=== PATIENT | female | born 1975 | race Caucasian/White ===

== ENCOUNTER 2017-03-27 18:14 | Emergency (ER) | payer MEDICARE, OTHER ==
--- NOTE | 2017-03-27 18:58 | EDM.PDOC ---
ED HPI GENERAL MEDICAL PROBLEM - General Stated Complaint: PAIN LEGS /FEET Time Seen by Provider: 03/27/17 18:38 Source of Information: Reports: Patient, Old Records History Limitations: Reports: No Limitations - History of Present Illness INITIAL COMMENTS - FREE TEXT/NARRATIVE: HISTORY AND PHYSICAL: []Patient just returned to this area from [place]. History of Present Illness: []Patient is visiting here until she returns to [place] on the currently she does not have her medications and is requesting refills. Her discharge summary is brought with her and reviewed Discharge diagnosis and medical history includes #1 depression #2 bipolar #3 borderline personality disorder with maladaptive coping number for anxiety #5 hypothyroid #6 morbid obesity #7 chronic degenerative spine disease multiple thoracolumnar spine surgeries #8 chronic back pain #9 lumbar epidural abscess # 10 most recent surgery T12-L1 transforaminal lumbar interbody fusion and Wallace- Serrano osteotomy 04/19/16. 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 Allergies reported to sulfa drugs with hives and GI disturbance. Tegaderm dressing causes itchiness, methadone unclear it was nafcillin or methadone. Wellbutrin caused seizure activity. Patient had been in a retirement for rehabilitation and then did stay in this facility as she had nowhere to live. Documentation states an admission to [facility] on 02/02/16 ([facility] [facility])following hospitalization for paraspinal lumbar abscess shooting neuropathic pain of the bilateral lower extremities. Abcess treated with IV ABX. PT/OT community reintegration was also completed during therapy. she is independent with ADLs. Resident no longer had medical skilled need to remain in long-term care setting. Further stated in her nursing summary was admitted to [facility] on 03/19/17 relating to drug diversion, inappropriately taking narcotics based on this report Dr. Lind tapered and discontinued her Valium. patient became upset hitting herself verbalized thoughts of suicide was again hospitalized and later discharged, during the hospitalization 03/21/17, all narcotics were discontinued Review of Systems: As per history of present illness and below otherwise all systems reviewed and negative. Past medical history: As per history of present illness and as reviewed below otherwise noncontributory. Surgical history: As per history of present illness and as reviewed below otherwise noncontributory. Social history: No reported history of drug or alcohol abuse. Family history: As per history of present illness and as reviewed below otherwise noncontributory. Physical exam: Patient is alert and speaking in full sentences. Walking without any difficulty with her walker. HEENT: Atraumatic, normocehpalic, pupils reactive, negative for conjunctival pallor or scleral icterus, mucous membranes moist, throat clear, neck supple, nontender, trachea midline. Lungs: Clear to auscultation, breath sounds equal bilaterally, chest non tender. Heart: S1S2, regular, negative for clicks, rubs, or JVD. Abdomen: Soft, nondistended, nontender. Negative for masses or hepatossplenmegaly. Negative for costovertebral tenderness. Pelvis: Stable nontender. Genitourinary: Deferred. Rectal: Deferred Extremities: Atraumatic, negative for cords or calf pain. Neurovascular unremarkable. Neuro: Awake, alert, oriented. Cranial nerves II through XII unremarkable. Cerebellum unremarkable. Motor and sensory unremarkable throughout. Exam nonfocal. Have discussed at length the use of chronic medications and that emergency room we are not able to renew her medicines for her. She's been referred to [facility] practice clinic or walking clinic for this concern Diagnostics: [] Therapeutics: [] Impression: [Medication renewal] Plan: []Plan is to go to walk-in clinic at [facility] fitness Definitive disposition and diagnosis as appropriate pending reevaluation and review of above. Onset: Gradual Duration: Chronic - Related Data Allergies Allergy/AdvReac Type Severity Reaction Status Date / Time adhesive tape Allergy Rash Verified 03/27/17 18:54 bupropion HCl Allergy Hives Verified 03/27/17 18:54 [From Wellbutrin] metoclopramide HCl Allergy Hives Verified 03/27/17 18:54 [From Reglan] Sulfa (Sulfonamide Allergy Hives Verified 03/27/17 18:54 Antibiotics) Home Meds: Home Meds Baclofen [Lioresal] 20 mg PO TID 12/06/15 [History] Diazepam [Diazepam] 5 mg PO TID PRN 12/06/15 [History] Esomeprazole [NexIUM] 40 mg PO DAILY 12/06/15 [History] Estradiol [Estradiol] 2 mg PO DAILY 12/06/15 [History] Levothyroxine Sodium 137 mcg PO DAILY 12/06/15 [History] Lurasidone [Latuda] 20 mg PO DAILY 12/06/15 [History] Potassium Chloride 20 meq PO DAILY 12/06/15 [History] Pregabalin [Lyrica] 150 mg PO BID 12/06/15 [History] oxyCODONE HCl [Oxycodone HCl] 10 mg PO Q12HR 12/06/15 [History] Acetaminophen [Tylenol] 650 mg PO Q4H PRN 12/17/15 [History] Calcium Carb & Citrate/Vit D3 [Citracal + D ER] 2 tab PO DAILY 12/17/15 [History ] Cyanocobalamin (Vitamin B12) [Vitamin B12] 1 tab PO DAILY 12/17/15 [History] Cyanocobalamin (Vitamin B12) [Vitamin B12] 1,000 mcg IM ASDIRECTED 12/17/15 [ History] DULoxetine [Cymbalta] 1 cap PO DAILY 12/17/15 [History] Diclofenac Sodium [Voltaren] 1 tab PO QID PRN 12/17/15 [History] Fish Oil/[place]-3 Fatty Acids [Fish Oil 1,000 MG] 3 cap PO TID 12/17/15 [History] Ibuprofen 1 cap PO Q6HR PRN 12/17/15 [History] Vits #93/Iron Fum/FA [ Formula Tablet] 1 tab PO DAILY 12/17/15 [History] Pseudoephedrine [Sudogest] 1 tab PO Q6HR PRN 12/17/15 [History] Zolpidem [Ambien] 1 tab PO BEDTIME 12/17/15 [History] traZODone 1 tab PO DAILY PRN 12/17/15 [History] Past Medical History Cardiovascular History: Reports: Hypertension Gastrointestinal History: Reports: GERD Genitourinary History: Reports: UTI, Recurrent, 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) Other Genitourinary History: kidney mass, dysuria 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: , 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) Other OB/BYN History: HRT Other Musculoskeletal History: Spinal stenosis, degenerative bone disease Neurological History: Reports: Migraines Psychiatric History: Reports: Anxiety, Depression, 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) Other Psychiatric History: insomnia, bipolar Endocrine/Metabolic History: Reports: Diabetes, Type II, Hyperthyroidism Hematologic History: Reports: Anemia, Iron Deficiency Dermatologic History: Reports: 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) Other Dermatologic History: neel infections - Infectious Disease History Infectious Disease History: Reports: None - Past Surgical History GI Surgical History: Reports: Bariatric Procedure Musculoskeletal Surgical History: Reports: 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) Social & Family History - Family History HEENT: Reports: None Cardiac: Reports: None Respiratory: Reports: None GI: Reports: None : Reports: None OBGYN: Reports: None Musculoskeletal: Reports: None Neurological: Reports: None Psychiatric: Reports: Anxiety, Depression Endocrine/Metabolic: Reports: Diabetes, type II Hematologic: Reports: None Immunologic: Reports: None Oncologic: Reports: Bone, Pancreatic - Tobacco Use Smoking Status *Q: Former Smoker Years of Tobacco use: 20 Packs/Tins Daily: 0.5 Used Tobacco, but Quit: Yes Month Tobacco Last Used: June, Second Hand Smoke Exposure: No - Recreational Drug Use Recreational Drug Use: No ED ROS GENERAL - Review of Systems Review Of Systems: ROS reveals no pertinent complaints other than HPI. ED EXAM, GENERAL - Physical Exam Exam: See Below (see dictation) Departure - Departure Time of Disposition: 19:08 Disposition: Home, Self-Care 01 Condition: Good Clinical Impression: Chronic back pain greater than 3 months duration - Discharge Information Additional Instructions: The following information is given to patients seen in the emergency department who are being discharged to home. This information is to outline your options for follow-up care. We provide all patients seen in our emergency department with a follow-up referral. The need for follow-up, as well as the timing and circumstances, are variable depending upon the specifics of your emergency department visit. If you don't have a primary care physician on staff, we will provide you with a referral. We always advise you to contact your personal physician following an emergency department visit to inform them of the circumstance of the visit and for follow-up with them and/or the need for any referrals to a consulting specialist. The emergency department will also refer you to a specialist when appropriate. This referral assures that you have the opportunity for followup care with a specialist. All of these measure are taken in an effort to provide you with optimal care, which includes your followup. Under all circumstances we always encourage you to contact your private physician who remains a resource for coordinating your care. When calling for followup care, please make the office aware that this follow-up is from your recent emergency room visit. If for any reason you are refused follow-up, please contact the [facility] emergency department at and asked to speak to the emergency department charge nurse.
[2017-03-27 19:18] VITALS: BP 117/73
== END 2017-03-27 19:15 | disposition home or self-care (01) ==
LOC: MW.ED 18:14
DX: Z76.0 Encounter for issue of repeat prescription (principal); G89.29 Other chronic pain; M54.9 Dorsalgia, unspecified; I10 Essential (primary) hypertension; K21.9 Gastro-esophageal reflux disease without esophagitis; G43.909 Migraine, unspecified, not intractable, without status migrainosus; F41.9 Anxiety disorder, unspecified; F32.9 Major depressive disorder, single episode, unspecified; E11.9 Type 2 diabetes mellitus without complications; E05.90 Thyrotoxicosis, unspecified without thyrotoxic crisis or storm; Z86.2 Personal history of diseases of the blood and blood-forming organs and certain disorders involving the immune mechanism; Z98.84 Bariatric surgery status; Z87.440 Personal history of urinary (tract) infections; Z87.891 Personal history of nicotine dependence; Z79.899 Other long term (current) drug therapy; Z88.2 Allergy status to sulfonamides; Z88.8 Allergy status to other drugs, medicaments and biological substances
CPT/HCPCS: 99281; 99283

== ENCOUNTER 2017-05-01 14:14 | Emergency (ER) | payer MEDICAID, MEDICARE ==
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
[2017-05-01] MEDS ORDERED: HYDROmorphone 2 MG/ML Syringe IM ONE (15:38)
[2017-05-01 18:19] VITALS: BP 144/67
--- NOTE | 2017-05-02 18:05 | CR ---
EXAM DATE: 05/01/17 PATIENT'S AGE: 41 Patient: MARI VALDEZ Facility: [place], [place] Site . Site : 1975 Study: XRay Chest [id number]/3/2017 4:28:19 PM Ordering Physician: Michaela Knight Final Report: INDICATION: pain TECHNIQUE: Chest 2 views COMPARISON: None FINDINGS: Cardiovascular and mediastinum: Heart size and vasculature are normal in caliber and appearance. Mediastinum is within normal limits. Lungs and pleural spaces: No focal consolidation. Hyperinflation. No sign of pleural effusion. No pneumothorax. Bones and soft tissues: Partially imaged bilateral Parmar rods in place. Advanced junctional disease noted. . IMPRESSION: No acute cardiopulmonary disease. Dictated by Albert Sheets MD @ 05/01/2017 5:07:40 PM Dictated by: Albert Sheets MD @ 05/01/2017 17:07:48 (Electronic Signature) Report Signed by Proxy. [facility]
--- NOTE | 2017-05-02 18:07 | CT ---
EXAM DATE: 05/01/17 PATIENT'S AGE: 41 Patient: MARI VALDEZ Facility: [place], [place] Site . Site : 1975 Study: CT Spine Lumbar WO CONT [id number]/3/2017 4:33:47 PM Ordering Physician: Michaela Knight Final Report: INDICATION: Upper back pain that radiates down to her lower back and right leg, patient states no known injury. Comparison: Chest radiograph from May 01, 2017 CT lumbar spine from December 17, 2015. Technique: Multiaxial CT images of the thoracolumbar spine were obtained without intravenous contrast. Coronal and sagittal reformatted images were submitted. FINDINGS: There is mild bilateral atelectasis. There is kyphosis at T10-T11 with fracture/ deformity of the T10 inferior endplate. There is vacuum disc phenomenon and Schmorl`s node at this level. Mild subluxation of the facet joints at T10-11 in the craniocaudal dimension. Bilateral subacute to chronic T9 pedicle fractures. There is no evidence of severe neural foramen narrowing. There is mild neural foramen narrowing at T9-10 on the left. Redemonstrated is posterior fusion hardware and transpedicle screws from T11- S2. Posterior decompression is noted from about L2-S1. Intervertebral disc cages are noted at L1-2, L2-L3 and L3-L4, with two at the L4-5 disc level. The right-sided cage at L4-5 is projects centrally positioned and angulated anterior superiorly. Healing rib fractures noted on the left at T8, T11, T12 and on the right at T10. There is an acute left T9 no fracture. Evaluation of the spinal canal is limited due to metallic hardware artifact. IMPRESSION: 1. Likely subacute T10 inferior endplate fracture. Subacute-chronic bilateral T9 pedicle fractures. 2. Healing rib fractures noted on the left at T8, T11, T12 and on the right at T10. There is an acute left T9 no fracture. 3. Redemonstrated is posterior fusion hardware and transpedicle screws from T11- S2. Posterior decompression is noted from about L2-S1. Intervertebral disc cages are noted at L1-2, L2-L3 and L3-L4, with two at the L4-5 disc level. The right-sided cage at L4-5 is projects centrally positioned and angulated anterior superiorly. Please note that all CT scans at this facility use dose modulation, iterative reconstruction, and/or weight-based dosing when appropriate to reduce radiation dose to as low as reasonably achievable. Dictated by Ruben Rowe MD @ May 02 2017 2:07PM (Electronic Signature) Report Signed by Proxy. MTDD
--- NOTE | 2017-05-02 18:09 | CT ---
EXAM DATE: 05/01/17 PATIENT'S AGE: 41 Patient: MARI VALDEZ Facility: [place], [place] Site . Site : 1975 Study: CT Spine Thoracic wo cont [id number]/3/2017 4:43:16 PM Ordering Physician: Michaela Knight Final Report: INDICATION: Upper back pain that radiates down to her lower back and right leg, patient states no known injury. Comparison: Chest radiograph from May 01, 2017 CT lumbar spine from December 17, 2015. Technique: Multiaxial CT images of the thoracolumbar spine were obtained without intravenous contrast. Coronal and sagittal reformatted images were submitted. FINDINGS: There is mild bilateral atelectasis. There is kyphosis at T10-T11 with fracture/deformity of the T10 inferior endplate. There is vacuum disc phenomenon and Schmorl`s node at this level. Mild subluxation of the facet joints at T10-11 in the craniocaudal dimension. There is no evidence of significant severe neural foramen narrowing. There is mild neural foramen narrowing at T9-10 on the left. Bilateral subacute to chronic T9 pedicle fractures. Redemonstrated is posterior fusion hardware and transpedicle screws from T11- S2. Posterior decompression is noted from about L2-S1. Intervertebral disc cages are noted at L1-2, L2-L3 and L3-L4, with two at the L4-5 disc level. The right-sided cage at L4-5 is projects centrally positioned and angulated anterior superiorly. Healing rib fractures noted on the left at T8, T11, T12 and on the right at T10. There is an acute left T9 no fracture. Evaluation of the spinal canal is limited due to metallic hardware artifact. IMPRESSION: 1. Likely subacute T10 inferior endplate fracture. Subacute-chronic bilateral T9 pedicle fractures. 2. Healing rib fractures noted on the left at T8, T11, T12 and on the right at T10. There is an acute left T9 no fracture. 3. Redemonstrated is posterior fusion hardware and transpedicle screws from T11- S2. Posterior decompression is noted from about L2-S1. Intervertebral disc cages are noted at L1-2, L2-L3 and L3-L4, with two at the L4-5 disc level. The right-sided cage at L4-5 is projects centrally positioned and angulated anterior superiorly. Please note that all CT scans at this facility use dose modulation, iterative reconstruction, and/or weight-based dosing when appropriate to reduce radiation dose to as low as reasonably achievable. Dictated by Ruben Rowe MD @ May 02 2017 8:17AM (Electronic Signature) Report Signed by Proxy. MTDD
== END 2017-05-01 18:16 | disposition home or self-care (01) ==
LOC: MW.ED 14:14
DX: S22.43XA Multiple fractures of ribs, bilateral, initial encounter for closed fracture (principal); M85.80 Other specified disorders of bone density and structure, unspecified site; I10 Essential (primary) hypertension; K21.9 Gastro-esophageal reflux disease without esophagitis; F41.9 Anxiety disorder, unspecified; F32.9 Major depressive disorder, single episode, unspecified; E11.9 Type 2 diabetes mellitus without complications; E03.9 Hypothyroidism, unspecified; Z87.891 Personal history of nicotine dependence; Z98.84 Bariatric surgery status; Z87.440 Personal history of urinary (tract) infections; Z79.899 Other long term (current) drug therapy; Z88.2 Allergy status to sulfonamides; Z88.8 Allergy status to other drugs, medicaments and biological substances; Z91.048 Other nonmedicinal substance allergy status; X58.XXXA Exposure to other specified factors, initial encounter
CPT/HCPCS: 71020; 72128; 72131; 80305; 81001; 96372; 99284; J1170; 99283

== ENCOUNTER 2017-05-24 16:34 | Emergency (ER) | payer MEDICARE, MEDICAID ==
--- NOTE | 2017-05-24 17:05 | EDM.PDOC ---
ED HPI GENERAL MEDICAL PROBLEM - General Chief Complaint: Lower Extremity Injury/Pain Stated Complaint: PAIN/SWOLLEN LT LEG Time Seen by Provider: 05/24/17 16:51 - History of Present Illness INITIAL COMMENTS - FREE TEXT/NARRATIVE: HISTORY AND PHYSICAL: History of present illness: Patient 41-year-old white female who presents with a concern of left knee pain patient has been seen in the ER multiple times in the past for multiple different pain syndromes including back leg patient states she has history of osteoporosis denies any trauma. Review of systems: As per history of present illness and below otherwise all systems reviewed and negative. Past medical history: As per history of present illness and as reviewed below otherwise noncontributory. Surgical history: As per history of present illness and as reviewed below otherwise noncontributory. Social history: No reported history of drug or alcohol abuse. Family history: As per history of present illness and as reviewed below otherwise noncontributory. Physical exam: HEENT: Atraumatic, normocephalic, pupils reactive, negative for conjunctival pallor or scleral icterus, mucous membranes moist, throat clear, neck supple, nontender, trachea midline. Lungs: Clear to auscultation, breath sounds equal bilaterally, chest nontender. Heart: S1S2, regular, negative for clicks, rubs, or JVD. Abdomen: Soft, nondistended, nontender. Negative for masses or hepatosplenomegaly. Negative for costovertebral tenderness. Pelvis: Stable nontender. Genitourinary: Deferred. Rectal: Deferred. Extremities: Patient has no localized tenderness of her left knee there is no swelling erythema no cords pain no crepitation joint is grossly stable Neuro: Awake, alert, oriented. Cranial nerves II through XII unremarkable. Cerebellum unremarkable. Motor and sensory unremarkable throughout. Exam nonfocal. Diagnostics: X-ray left knee venous Doppler left lower Therapeutics: None Impression: #1 left knee pain #2 history of osteoporosis #3 history of chronic back pain #4 history of leg pain Definitive disposition and diagnosis as appropriate pending reevaluation and review of above. - Related Data Allergies Allergy/AdvReac Type Severity Reaction Status Date / Time adhesive tape Allergy Rash Verified 05/01/17 14:22 bupropion HCl Allergy Hives Verified 05/01/17 14:22 [From Wellbutrin] metoclopramide HCl Allergy Hives Verified 05/01/17 14:22 [From Reglan] Penicillins Allergy Hives Verified 05/24/17 17:07 Sulfa (Sulfonamide Allergy Hives Verified 05/01/17 14:22 Antibiotics) Home Meds: Home Meds Baclofen [Lioresal] 20 mg PO TID 12/06/15 [History] Esomeprazole [NexIUM] 40 mg PO BID 12/06/15 [History] Calcium Carb & Citrate/Vit D3 [Citracal + D ER] 2 tab PO DAILY 12/17/15 [History ] ARIPiprazole [Aripiprazole] 15 mg PO DAILY 05/01/17 [History] Celecoxib 200 mg PO BID 05/01/17 [History] DULoxetine [Cymbalta] 120 mg PO DAILY 05/01/17 [History] Estradiol [Estradiol Transdermal Patch] 0.075 mg TD MOFR 05/01/17 [History] Furosemide 40 mg PO BID 05/01/17 [History] Hydrocortisone [Proctosol-HC] 1 applicful RC TID PRN 05/01/17 [History] L Acidophil/B Lactis/B Longum [Florajen3] 460 mg PO Q12H 05/01/17 [History] Levothyroxine 125 mcg PO ACBREAKFAST 05/01/17 [History] Lurasidone HCl [Latuda] 40 mg PO DAILY 05/01/17 [History] Magnesium Oxide 400 mg PO DAILY 05/01/17 [History] Methocarbamol [Robaxin] 500 mg PO Q6H PRN 05/01/17 [History] Minocycline [Minocin] 100 mg PO BID 05/01/17 [History] Mometasone Furoate [Nasonex [place]] 1 spray [place] DAILY 05/01/17 [History] Multivit-Min/FA/Lycopene/Lut [Certavite Sr with Lutein Tab] 1 each PO DAILY 12/13 [History] Ondansetron [Zofran] 4 mg PO Q8H PRN 05/01/17 [History] Potassium Chloride 10 meq PO DAILY 05/01/17 [History] Spironolact/Hydrochlorothiazid [Spironolactone-HCTZ 25-25] 1 tab PO DAILY [History] Topiramate 100 mg PO BEDTIME 05/01/17 [History] diphenhydrAMINE [Benadryl] 25 mg PO Q4H PRN 05/01/17 [History] Past Medical History Cardiovascular History: Reports: Hypertension Gastrointestinal History: Reports: GERD Genitourinary History: Reports: UTI, Recurrent, 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) Other Genitourinary History: kidney mass, dysuria [employer] History: Reports: , 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) Other OB/BYN History: HRT Other Musculoskeletal History: Spinal stenosis, degenerative bone disease Neurological History: Reports: Migraines Psychiatric History: Reports: Anxiety, Depression, 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) Other Psychiatric History: insomnia, bipolar Endocrine/Metabolic History: Reports: Diabetes, Type II, Hyperthyroidism Hematologic History: Reports: Anemia, Iron Deficiency Dermatologic History: Reports: 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) Other Dermatologic History: neel infections - Infectious Disease History Infectious Disease History: Reports: 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) Other Infectious Disease History: MSSA - Past Surgical History GI Surgical History: Reports: Bariatric Procedure Musculoskeletal Surgical History: Reports: 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) Social & Family History - Family History Family Medical History: Noncontributory HEENT: Reports: None Cardiac: Reports: None Respiratory: Reports: None GI: Reports: None : Reports: None OBGYN: Reports: None Musculoskeletal: Reports: None Neurological: Reports: None Psychiatric: Reports: Anxiety, Depression Endocrine/Metabolic: Reports: Diabetes, type II Hematologic: Reports: None Immunologic: Reports: None Oncologic: Reports: Bone, Pancreatic - Tobacco Use Smoking Status *Q: Former Smoker Years of Tobacco use: 20 Packs/Tins Daily: 0.5 Used Tobacco, but Quit: Yes Month Tobacco Last Used: March Second Hand Smoke Exposure: No - Caffeine Use Caffeine Use: Reports: Coffee, Energy Drinks, Soda, Tea - Recreational Drug Use Recreational Drug Use: No Review of Systems - Review of Systems Review Of Systems: ROS reveals no pertinent complaints other than HPI. ED EXAM, GENERAL - Physical Exam Exam: See Below (See dictation) Course - Vital Signs Last Recorded V/S: Last Vital Signs Temp 36.6 C 05/24/17 17:03 Pulse 98 05/24/17 17:03 Resp 20 05/24/17 17:03 BP 115/77 05/24/17 17:03 Pulse Ox 98 05/24/17 17:03 - Orders/Labs/Meds Orders: Active Orders 24 hr Category Date Time Status Knee 3V Lt [CR] Stat Exams 05/24/17 17:02 Taken Venous Doppler Lwr Ext Lt [US] Stat Exams 05/24/17 17:02 Taken Departure - Departure Time of Disposition: 18:19 Disposition: Home, Self-Care 01 Condition: Good Clinical Impression: Knee pain - Discharge Information Referrals: Jarocho Loco DO [Primary Care Provider] - Forms: ED Department Discharge Additional Instructions: The following information is given to patients seen in the emergency department who are being discharged to home. This information is to outline your options for follow-up care. We provide all patients seen in our emergency department with a follow-up referral. The need for follow-up, as well as the timing and circumstances, are variable depending upon the specifics of your emergency department visit. If you don't have a primary care physician on staff, we will provide you with a referral. We always advise you to contact your personal physician following an emergency department visit to inform them of the circumstance of the visit and for follow-up with them and/or the need for any referrals to a consulting specialist. The emergency department will also refer you to a specialist when appropriate. This referral assures that you have the opportunity for followup care with a specialist. All of these measure are taken in an effort to provide you with optimal care, which includes your followup. Under all circumstances we always encourage you to contact your private physician who remains a resource for coordinating your care. When calling for followup care, please make the office aware that this follow-up is from your recent emergency room visit. If for any reason you are refused follow-up, please contact the [facility] emergency department at and asked to speak to the emergency department charge nurse. [facility] - Orth[facility] Professional Building [address] [place] [address], [address] [place] [address] Follow-up primary medical doctor in orthopedic clinic above as discussed call to schedule routine appointment Motrin Tylenol as directed return as needed as discussed - My Orders Last 24 Hours: My Active Orders 05/24/17 17:02 Knee 3V Lt [CR] Stat Venous Doppler Lwr Ext Lt [US] Stat - Assessment/Plan Last 24 Hours: My Active Orders 05/24/17 17:02 Knee 3V Lt [CR] Stat Venous Doppler Lwr Ext Lt [US] Stat
[2017-05-24 17:06] VITALS: BP 115/77
[2017-05-24] MEDS ORDERED: Ketorolac 30 MG/ML SDV IM ONE (18:23)
--- NOTE | 2017-05-26 12:08 | CR ---
EXAM DATE: 05/24/17 PATIENT'S AGE: 41 Patient: MARI VALDEZ Facility: [place], [place] Site . Site : 1975 Study: XRay Knee [id number]/26/2017 5:38:03 PM Ordering Physician: Fela Dominguez Final Report: Indication: Pain Technique: Three views left knee Comparison: None Findings: Bones: Alignment is normal. No fractures or bone lesions. Joint spaces: Unremarkable. Soft tissues: Unremarkable. Impression: Negative. Dictated by Iva Morales MD @ May 24 2017 6:03PM (Electronic Signature) Report Signed by Proxy. MONY
--- NOTE | 2017-05-26 12:10 | US ---
EXAM DATE: 05/24/17 PATIENT'S AGE: 41 Patient: MARI VALDEZ Facility: [place], [place] Site . Site : 1975 Study: US Extremity [id number]/26/2017 6:13:03 PM Ordering Physician: Fela Dominguez Final Report: INDICATION: Pain TECHNIQUE: Ultrasound venous duplex lower left extremity. Compression venous exam was performed using watt-scale, color Doppler, and spectral Doppler imaging. COMPARISON: None FINDINGS: Sonographic imaging demonstrates the left common femoral, deep femoral, superficial femoral, popliteal, posterior tibial and greater saphenous veins to be fully compressible with normal color Doppler blood flow. IMPRESSION: Normal left lower extremity venous ultrasound, no sign of deep venous thrombosis. Dictated by Iva Morales MD @ May 24 2017 6:15PM (Electronic Signature) Report Signed by Proxy. MONY
== END 2017-05-24 18:45 | disposition home or self-care (01) ==
LOC: MW.ED 16:34
DX: M25.562 Pain in left knee (principal); I10 Essential (primary) hypertension; K21.9 Gastro-esophageal reflux disease without esophagitis; Z87.440 Personal history of urinary (tract) infections; F41.9 Anxiety disorder, unspecified; F32.9 Major depressive disorder, single episode, unspecified; E11.9 Type 2 diabetes mellitus without complications; E05.90 Thyrotoxicosis, unspecified without thyrotoxic crisis or storm; Z86.2 Personal history of diseases of the blood and blood-forming organs and certain disorders involving the immune mechanism; Z87.39 Personal history of other diseases of the musculoskeletal system and connective tissue; Z88.2 Allergy status to sulfonamides; Z88.0 Allergy status to penicillin; Z88.8 Allergy status to other drugs, medicaments and biological substances; Z79.899 Other long term (current) drug therapy; Z87.891 Personal history of nicotine dependence; Z98.84 Bariatric surgery status
CPT/HCPCS: 73562; 93971; 96372; 99284; J1885

== ENCOUNTER 2017-05-26 11:07 | Emergency (ER) | payer MEDICARE, MEDICAID ==
--- NOTE | 2017-05-26 11:33 | EDM.PDOC ---
ED HPI GENERAL MEDICAL PROBLEM - General Chief Complaint: Lower Extremity Injury/Pain Stated Complaint: LT KNEE HURTS Time Seen by Provider: 05/26/17 11:27 Source of Information: Reports: Patient History Limitations: Reports: No Limitations - History of Present Illness INITIAL COMMENTS - FREE TEXT/NARRATIVE: HISTORY AND PHYSICAL: []41-year-old female presents with left knee pain that has been worsening and presentation History of Present Illness: []Patient's pain started a week ago she started having pain to the subpatellar area. Patient was seen in the emergency room 2 days ago. Pain has worsened since. Has difficulty standing on her left leg. Patient's chart has been reviewed from previous visits. Patient does have an appointment with orthopedics on June 06. Review of Systems: As per history of present illness and below otherwise all systems reviewed and negative. Past medical history: As per history of present illness and as reviewed below otherwise noncontributory. Surgical history: As per history of present illness and as reviewed below otherwise noncontributory. Social history: No reported history of drug or alcohol abuse. Family history: As per history of present illness and as reviewed below otherwise noncontributory. Physical exam: Alert and oriented obese female who is nontoxic. Answering questions in full sentences. she does have a walker with her and is now sitting in a wheelchair. HEENT: Atraumatic, normocehpalic, pupils reactive, negative for conjunctival pallor or scleral icterus, mucous membranes moist, throat clear, neck supple, nontender, trachea midline. Lungs: Clear to auscultation, breath sounds equal bilaterally, chest non tender. Heart: S1S2, regular, negative for clicks, rubs, or JVD. Abdomen: Soft, nondistended, nontender. Negative for masses or hepatossplenmegaly. Negative for costovertebral tenderness. Pelvis: Deferred Genitourinary: Deferred. Rectal: Deferred Extremities: Atraumatic, negative for cords or calf pain. Pedal pulses are intact. anterior drawer negative. Unable to form other evaluation this patient is unable to relax enough. Neurovascular unremarkable. Neuro: Awake, alert, oriented. Cranial nerves II through XII unremarkable. Cerebellum unremarkable. Motor and sensory unremarkable throughout. Exam nonfocal. Diagnostics: [CT left knee] Therapeutics: [Toradol Ash wrap] Impression: [Left knee pain] Plan: []Discharged to home Follow up with orthopedic as already scheduled Definitive disposition and diagnosis as appropriate pending reevaluation and review of above. Left Knee Pain Score (Numeric/FACES): 8 - Related Data Allergies Allergy/AdvReac Type Severity Reaction Status Date / Time adhesive tape Allergy Rash Verified 05/01/17 14:22 bupropion HCl Allergy Hives Verified 05/01/17 14:22 [From Wellbutrin] metoclopramide HCl Allergy Hives Verified 05/01/17 14:22 [From Reglan] Penicillins Allergy Hives Verified 05/24/17 17:07 Sulfa (Sulfonamide Allergy Hives Verified 05/01/17 14:22 Antibiotics) Home Meds: Home Meds Baclofen [Lioresal] 20 mg PO TID 12/06/15 [History] Esomeprazole [NexIUM] 40 mg PO BID 12/06/15 [History] Calcium Carb & Citrate/Vit D3 [Citracal + D ER] 2 tab PO DAILY 12/17/15 [History ] ARIPiprazole [Aripiprazole] 15 mg PO DAILY 05/01/17 [History] Celecoxib 200 mg PO BID 05/01/17 [History] DULoxetine [Cymbalta] 120 mg PO DAILY 05/01/17 [History] Estradiol [Estradiol Transdermal Patch] 0.075 mg TD MOFR 05/01/17 [History] Furosemide 40 mg PO BID 05/01/17 [History] Hydrocortisone [Proctosol-HC] 1 applicful RC TID PRN 05/01/17 [History] L Acidophil/B Lactis/B Longum [Florajen3] 460 mg PO Q12H 05/01/17 [History] Levothyroxine 125 mcg PO ACBREAKFAST 05/01/17 [History] Lurasidone HCl [Latuda] 40 mg PO DAILY 05/01/17 [History] Magnesium Oxide 400 mg PO DAILY 05/01/17 [History] Methocarbamol [Robaxin] 500 mg PO Q6H PRN 05/01/17 [History] Minocycline [Minocin] 100 mg PO BID 05/01/17 [History] Mometasone Furoate [Nasonex [place]] 1 spray [place] DAILY 05/01/17 [History] Multivit-Min/FA/Lycopene/Lut [Certavite Sr with Lutein Tab] 1 each PO DAILY 12/13 [History] Ondansetron [Zofran] 4 mg PO Q8H PRN 05/01/17 [History] Potassium Chloride 10 meq PO DAILY 05/01/17 [History] Spironolact/Hydrochlorothiazid [Spironolactone-HCTZ 25-25] 1 tab PO DAILY [History] Topiramate 100 mg PO BEDTIME 05/01/17 [History] diphenhydrAMINE [Benadryl] 25 mg PO Q4H PRN 05/01/17 [History] Past Medical History Cardiovascular History: Reports: Hypertension Gastrointestinal History: Reports: GERD Genitourinary History: Reports: UTI, Recurrent, 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) Other Genitourinary History: kidney mass, dysuria [employer] History: Reports: , 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) Other OB/BYN History: HRT Other Musculoskeletal History: Spinal stenosis, degenerative bone disease Neurological History: Reports: Migraines Psychiatric History: Reports: Anxiety, Depression, 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) Other Psychiatric History: insomnia, bipolar Endocrine/Metabolic History: Reports: Diabetes, Type II, Hyperthyroidism Hematologic History: Reports: Anemia, Iron Deficiency Dermatologic History: Reports: 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) Other Dermatologic History: neel infections - Infectious Disease History Infectious Disease History: Reports: 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) Other Infectious Disease History: MSSA - Past Surgical History GI Surgical History: Reports: Bariatric Procedure Musculoskeletal Surgical History: Reports: 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) Social & Family History - Family History Family Medical History: Noncontributory HEENT: Reports: None Cardiac: Reports: None Respiratory: Reports: None GI: Reports: None : Reports: None OBGYN: Reports: None Musculoskeletal: Reports: None Neurological: Reports: None Psychiatric: Reports: Anxiety, Depression Endocrine/Metabolic: Reports: Diabetes, type II Hematologic: Reports: None Immunologic: Reports: None Oncologic: Reports: Bone, Pancreatic - Tobacco Use Smoking Status *Q: Former Smoker Years of Tobacco use: 20 Packs/Tins Daily: 0.5 Used Tobacco, but Quit: Yes Month Tobacco Last Used: March Second Hand Smoke Exposure: No - Caffeine Use Caffeine Use: Reports: Coffee, Energy Drinks, Soda, Tea - Recreational Drug Use Recreational Drug Use: No Review of Systems - Review of Systems Review Of Systems: ROS reveals no pertinent complaints other than HPI. ED EXAM, GENERAL - Physical Exam Exam: See Below (see dictation) Course - Vital Signs Last Recorded V/S: Last Vital Signs Temp 35.8 C 05/26/17 11:18 Pulse 93 05/26/17 11:18 Resp 20 05/26/17 11:18 BP 102/54 L 05/26/17 11:18 Pulse Ox 99 05/26/17 11:18 - Orders/Labs/Meds Orders: Active Orders 24 hr Category Date Time Status Splinting [RC] ASDIRECTED Care 05/26/17 11:39 Ordered Meds: Medications Discontinued Medications Generic Name Dose Route Start Last Admin Trade Name Freq PRN Reason Stop Dose Admin Ketorolac Tromethamine 60 mg 05/26/17 11:34 Toradol IM 05/26/17 11:35 ONETIME ONE Departure - Departure Time of Disposition: 11:42 Disposition: Home, Self-Care 01 Condition: Good Clinical Impression: Left anterior knee pain - Discharge Information Referrals: PCP,None [Primary Care Provider] - Forms: ED Department Discharge Additional Instructions: The following information is given to patients seen in the emergency department who are being discharged to home. This information is to outline your options for follow-up care. We provide all patients seen in our emergency department with a follow-up referral. The need for follow-up, as well as the timing and circumstances, are variable depending upon the specifics of your emergency department visit. If you don't have a primary care physician on staff, we will provide you with a referral. We always advise you to contact your personal physician following an emergency department visit to inform them of the circumstance of the visit and for follow-up with them and/or the need for any referrals to a consulting specialist. The emergency department will also refer you to a specialist when appropriate. This referral assures that you have the opportunity for followup care with a specialist. All of these measure are taken in an effort to provide you with optimal care, which includes your followup. Under all circumstances we always encourage you to contact your private physician who remains a resource for coordinating your care. When calling for followup care, please make the office aware that this follow-up is from your recent emergency room visit. If for any reason you are refused follow-up, please contact the [facility] emergency department at and asked to speak to the emergency department charge nurse. Please ice your knee on 20 minutes off 20 minutes as needed Tylenol every 4-6 hours for pain Follow-up with your orthopedist as scheduled - My Orders Last 24 Hours: My Active Orders 05/26/17 11:39 Splinting [RC] ASDIRECTED - Assessment/Plan Last 24 Hours: My Active Orders 05/26/17 11:39 Splinting [RC] ASDIRECTED
[2017-05-26] MEDS ORDERED: Ketorolac 60 MG/2 ML SDV IM ONE (11:34)
[2017-05-26 12:54] VITALS: BP 121/57
== END 2017-05-26 12:50 | disposition home or self-care (01) ==
LOC: MW.ED 11:07
DX: M25.562 Pain in left knee (principal); I10 Essential (primary) hypertension; K21.9 Gastro-esophageal reflux disease without esophagitis; E11.9 Type 2 diabetes mellitus without complications; E05.90 Thyrotoxicosis, unspecified without thyrotoxic crisis or storm; F41.9 Anxiety disorder, unspecified; F32.9 Major depressive disorder, single episode, unspecified; Z88.8 Allergy status to other drugs, medicaments and biological substances; Z79.899 Other long term (current) drug therapy; Z87.440 Personal history of urinary (tract) infections; Z87.891 Personal history of nicotine dependence; Z88.0 Allergy status to penicillin; Z88.2 Allergy status to sulfonamides; Z98.84 Bariatric surgery status
CPT/HCPCS: 96372; 99282; J1885; 99284

== ENCOUNTER 2017-06-03 19:06 | Emergency (ER) | payer MEDICARE, MEDICAID ==
--- NOTE | 2017-06-03 19:33 | EDM.PDOC ---
ED HPI GENERAL MEDICAL PROBLEM - General Stated Complaint: PAIN KNEE/BACK Time Seen by Provider: 06/03/17 19:27 - History of Present Illness INITIAL COMMENTS - FREE TEXT/NARRATIVE: HISTORY AND PHYSICAL: History of present illness: Patient is 41-year-old female with history chronic back pain is been seen for left knee pain prior and multiple other pain syndromes who presents with a concern of left knee and ankle pain she states this is a new injury to her left knee and ankle. Review of systems: As per history of present illness and below otherwise all systems reviewed and negative. Past medical history: As per history of present illness and as reviewed below otherwise noncontributory. Surgical history: As per history of present illness and as reviewed below otherwise noncontributory. Social history: No reported history of drug or alcohol abuse. Family history: As per history of present illness and as reviewed below otherwise noncontributory. Physical exam: HEENT: Atraumatic, normocephalic, pupils reactive, negative for conjunctival pallor or scleral icterus, mucous membranes moist, throat clear, neck supple, nontender, trachea midline. Lungs: Clear to auscultation, breath sounds equal bilaterally, chest nontender. Heart: S1S2, regular, negative for clicks, rubs, or JVD. Abdomen: Soft, nondistended, nontender. Negative for masses or hepatosplenomegaly. Negative for costovertebral tenderness. Pelvis: Stable nontender. Genitourinary: Deferred. Rectal: Deferred. Extremities: Atraumatic, negative for cords or calf pain. Neurovascular unremarkable. Neuro: Awake, alert, oriented. Cranial nerves II through XII unremarkable. Cerebellum unremarkable. Motor and sensory unremarkable throughout. Exam nonfocal. Diagnostics: X-ray left knee/ankle Therapeutics: None Impression: #1 chronic back pain #2 left knee/ankle injury Definitive disposition and diagnosis as appropriate pending reevaluation and review of above. - Related Data Allergies Allergy/AdvReac Type Severity Reaction Status Date / Time adhesive tape Allergy Rash Verified 05/01/17 14:22 bupropion HCl Allergy Hives Verified 05/01/17 14:22 [From Wellbutrin] metoclopramide HCl Allergy Hives Verified 05/01/17 14:22 [From Reglan] Penicillins Allergy Hives Verified 05/24/17 17:07 Sulfa (Sulfonamide Allergy Hives Verified 05/01/17 14:22 Antibiotics) Home Meds: Home Meds Baclofen [Lioresal] 20 mg PO TID 12/06/15 [History] Esomeprazole [NexIUM] 40 mg PO BID 12/06/15 [History] Calcium Carb & Citrate/Vit D3 [Citracal + D ER] 2 tab PO DAILY 12/17/15 [History ] ARIPiprazole [Aripiprazole] 15 mg PO DAILY 05/01/17 [History] Celecoxib 200 mg PO BID 05/01/17 [History] DULoxetine [Cymbalta] 120 mg PO DAILY 05/01/17 [History] Estradiol [Estradiol Transdermal Patch] 0.075 mg TD MOFR 05/01/17 [History] Furosemide 40 mg PO BID 05/01/17 [History] Hydrocortisone [Proctosol-HC] 1 applicful RC TID PRN 05/01/17 [History] L Acidophil/B Lactis/B Longum [Florajen3] 460 mg PO Q12H 05/01/17 [History] Levothyroxine 125 mcg PO ACBREAKFAST 05/01/17 [History] Lurasidone HCl [Latuda] 40 mg PO DAILY 05/01/17 [History] Magnesium Oxide 400 mg PO DAILY 05/01/17 [History] Methocarbamol [Robaxin] 500 mg PO Q6H PRN 05/01/17 [History] Minocycline [Minocin] 100 mg PO BID 05/01/17 [History] Mometasone Furoate [Nasonex [place]] 1 spray [place] DAILY 05/01/17 [History] Multivit-Min/FA/Lycopene/Lut [Certavite Sr with Lutein Tab] 1 each PO DAILY 12/13 [History] Ondansetron [Zofran] 4 mg PO Q8H PRN 05/01/17 [History] Potassium Chloride 10 meq PO DAILY 05/01/17 [History] Spironolact/Hydrochlorothiazid [Spironolactone-HCTZ 25-25] 1 tab PO DAILY [History] Topiramate 100 mg PO BEDTIME 05/01/17 [History] diphenhydrAMINE [Benadryl] 25 mg PO Q4H PRN 05/01/17 [History] Naproxen Sodium 500 gm MC BID #40 powder 05/26/17 [Rx] Past Medical History Cardiovascular History: Reports: Hypertension Gastrointestinal History: Reports: GERD Genitourinary History: Reports: UTI, Recurrent, 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) Other Genitourinary History: kidney mass, dysuria 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: , 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) Other OB/BYN History: HRT Musculoskeletal History: Reports: Osteoarthritis Other Musculoskeletal History: Spinal stenosis, degenerative bone disease Neurological History: Reports: Migraines Psychiatric History: Reports: Anxiety, Depression, 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) Other Psychiatric History: insomnia, bipolar Endocrine/Metabolic History: Reports: Diabetes, Type II, Hyperthyroidism Hematologic History: Reports: Anemia, Iron Deficiency Dermatologic History: Reports: 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) Other Dermatologic History: neel infections - Infectious Disease History Infectious Disease History: Reports: 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) Other Infectious Disease History: MSSA - Past Surgical History GI Surgical History: Reports: Bariatric Procedure Musculoskeletal Surgical History: Reports: 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) Social & Family History - Family History Family Medical History: Noncontributory HEENT: Reports: None Cardiac: Reports: None Respiratory: Reports: None GI: Reports: None : Reports: None OBGYN: Reports: None Musculoskeletal: Reports: None Neurological: Reports: None Psychiatric: Reports: Anxiety, Depression Endocrine/Metabolic: Reports: Diabetes, type II Hematologic: Reports: None Immunologic: Reports: None Oncologic: Reports: Bone, Pancreatic - Tobacco Use Smoking Status *Q: Former Smoker Years of Tobacco use: 20 Packs/Tins Daily: 0.5 Used Tobacco, but Quit: Yes Month Tobacco Last Used: March Second Hand Smoke Exposure: No - Caffeine Use Caffeine Use: Reports: Coffee, Energy Drinks, Soda, Tea - Recreational Drug Use Recreational Drug Use: No ED ROS GENERAL - Review of Systems Review Of Systems: ROS reveals no pertinent complaints other than HPI. ED EXAM, GENERAL - Physical Exam Exam: See Below (See dictation) Departure - Departure Time of Disposition: 19:32 Disposition: Home, Self-Care 01 Condition: Good Clinical Impression: Chronic back pain, Knee injury, Ankle injury - Discharge Information Referrals: PCP,None [Primary Care Provider] - Additional Instructions: The following information is given to patients seen in the emergency department who are being discharged to home. This information is to outline your options for follow-up care. We provide all patients seen in our emergency department with a follow-up referral. The need for follow-up, as well as the timing and circumstances, are variable depending upon the specifics of your emergency department visit. If you don't have a primary care physician on staff, we will provide you with a referral. We always advise you to contact your personal physician following an emergency department visit to inform them of the circumstance of the visit and for follow-up with them and/or the need for any referrals to a consulting specialist. The emergency department will also refer you to a specialist when appropriate. This referral assures that you have the opportunity for followup care with a specialist. All of these measure are taken in an effort to provide you with optimal care, which includes your followup. Under all circumstances we always encourage you to contact your private physician who remains a resource for coordinating your care. When calling for followup care, please make the office aware that this follow-up is from your recent emergency room visit. If for any reason you are refused follow-up, please contact the [facility] emergency department at and asked to speak to the emergency department charge nurse. Continue walker and gait assistance as discussed follow-up private medical doctor pain clinic referral as discussed return as needed as discussed]
[2017-06-03 20:25] VITALS: BP 129/69
--- NOTE | 2017-06-04 15:57 | CR ---
EXAM DATE: 06/03/17 PATIENT'S AGE: 41 Patient: MARI VALDEZ Facility: [place], [place] Site . Site : 1975 Study: XRay Extremity Left ANKLE [id number]/5/2017 8:08:31 PM Ordering Physician: Fela Dominguez Final Report: INDICATION: PAIN IN LEFT ANKLE 3 views of the left ankle Findings: There is no acute fracture, malalignment or degenerative change. Soft tissues are radiographically unremarkable. Impression: Unremarkable radiographs of the left ankle. Dictated by: Sg Sheikh MD @ 06/03/2017 20:23:55 (Electronic Signature) Report Signed by Proxy. MONY
--- NOTE | 2017-06-04 15:58 | CR ---
EXAM DATE: 06/03/17 PATIENT'S AGE: 41 Patient: MARI VALDEZ Facility: [place], [place] Site . Site . : 1975 Study: XRay Knee Left [id number]/5/2017 8:08:06 PM Ordering Physician: Fela Dominguez Final Report: INDICATION: PAIN COMPARISON: April, 3 views of the left knee Findings: There is no acute fracture, malalignment or degenerative change. Soft tissues are radiographically unremarkable. Impression: Unremarkable radiographs of the left knee. Dictated by: Sg Sheikh MD @ 06/03/2017 20:23:20 (Electronic Signature) Report Signed by Proxy. MONY
== END 2017-06-03 20:20 | disposition home or self-care (01) ==
LOC: MW.ED 19:06
DX: S89.92XA Unspecified injury of left lower leg, initial encounter (principal); S99.912A Unspecified injury of left ankle, initial encounter; G89.29 Other chronic pain; M54.9 Dorsalgia, unspecified; I10 Essential (primary) hypertension; K21.9 Gastro-esophageal reflux disease without esophagitis; M19.90 Unspecified osteoarthritis, unspecified site; F32.9 Major depressive disorder, single episode, unspecified; E11.9 Type 2 diabetes mellitus without complications; E05.90 Thyrotoxicosis, unspecified without thyrotoxic crisis or storm; Z87.440 Personal history of urinary (tract) infections; Z86.2 Personal history of diseases of the blood and blood-forming organs and certain disorders involving the immune mechanism; Z87.891 Personal history of nicotine dependence; Z79.899 Other long term (current) drug therapy; Z88.0 Allergy status to penicillin; Z88.8 Allergy status to other drugs, medicaments and biological substances; Z88.2 Allergy status to sulfonamides; Z91.048 Other nonmedicinal substance allergy status; X58.XXXA Exposure to other specified factors, initial encounter
CPT/HCPCS: 73562-26-LT; 73562-LT; 73610-26-LT; 73610-LT; 99283

== ENCOUNTER 2017-06-10 12:25 | Emergency (ER) | payer MEDICARE, MEDICAID ==
[2017-06-10 13:20] VITALS: BP 130/86
--- NOTE | 2017-06-10 13:37 | EDM.PDOC ---
ED HPI GENERAL MEDICAL PROBLEM - General Chief Complaint: General Stated Complaint: PT WOULD LIKE TO BE SEEN Time Seen by Provider: 06/10/17 13:19 - History of Present Illness INITIAL COMMENTS - FREE TEXT/NARRATIVE: HISTORY AND PHYSICAL: History of present illness: The patient is a 41-year-old female who has a history of right posterior rib fractures which I diagnosed May 01 and for which she follows in our clinic with Dr. Loco; she presents because she is having persistent pain in that same area and it is breaking through with the Percocet that she has. According to the patient she contacted the clinic nurse who spoke with Dr. Loco who advised her to come here. The patient was seen yesterday in the clinic by Dr. Guillen and had a chest x-ray which I reviewed and which still reveals moderately displaced rib fractures of ribs 7 through 11. There was no pneumothorax or pneumonia. Patient also had a CBC which was within normal limits. She also takes muscle relaxants chronically. She has had no fevers chills shortness of breath or abdominal complaints. She says the pain is just seated in her right ribs. Review of systems: As per history of present illness and below otherwise all systems reviewed and negative. Past medical history: As per history of present illness and as reviewed below otherwise noncontributory. Surgical history: As per history of present illness and as reviewed below otherwise noncontributory. Social history: No reported history of drug or alcohol abuse. Family history: As per history of present illness and as reviewed below otherwise noncontributory. Physical exam: Gen.: Well-developed obese female who is nontoxic and moves in the ED without assistance. Vital signs of the note by me HEENT: Atraumatic, normocephalic, negative for conjunctival pallor or scleral icterus, mucous membranes moist, throat clear, neck supple, nontender, trachea midline. Lungs: Clear to auscultation, breath sounds equal bilaterally, chest wall is tender posteriorly at the right lower ribs consistent with where fractures are. There is no new crepitus appreciated Heart: S1S2, regular rate and rhythm no overt murmurs Abdomen: Soft, nondistended, nontender. NABS Skin: No evidence of any diaphoresis and turgor is normal Genitourinary: Deferred. Rectal: Deferred. Extremities: Atraumatic, negative for cords or calf pain. Neurovascular unremarkable. Neuro: Awake, alert, oriented. Cranial nerves II through XII unremarkable. Cerebellum unremarkable. Motor and sensory unremarkable throughout. Exam nonfocal. Diagnostics: [] Chest x-ray and CBC from yesterday were reviewed Therapeutics: Toradol 1335: Case was discussed with Dr. Loco who wants me to give a dose of Toradol IM here and give her a few more Percocet if she has run out. He states that he will refer her to pain clinic when he is back in the clinic next week. He told me to tell her to schedule an appointment with him. Impression: Persistent right rib pain history of fractures stable Definitive disposition and diagnosis as appropriate pending reevaluation and review of above. Right Posterior Pain Score (Numeric/FACES): 6 - Related Data Allergies Allergy/AdvReac Type Severity Reaction Status Date / Time adhesive tape Allergy Rash Verified 05/01/17 14:22 bupropion HCl Allergy Hives Verified 05/01/17 14:22 [From Wellbutrin] metoclopramide HCl Allergy Hives Verified 05/01/17 14:22 [From Reglan] Penicillins Allergy Hives Verified 05/24/17 17:07 Sulfa (Sulfonamide Allergy Hives Verified 05/01/17 14:22 Antibiotics) Home Meds: Home Meds Baclofen [Lioresal] 20 mg PO TID 12/06/15 [History] Esomeprazole [NexIUM] 40 mg PO BID 12/06/15 [History] Calcium Carb & Citrate/Vit D3 [Citracal + D ER] 2 tab PO DAILY 12/17/15 [History ] ARIPiprazole [Aripiprazole] 15 mg PO DAILY 05/01/17 [History] Celecoxib 200 mg PO BID 05/01/17 [History] DULoxetine [Cymbalta] 120 mg PO DAILY 05/01/17 [History] Estradiol [Estradiol Transdermal Patch] 0.075 mg TD MOFR 05/01/17 [History] Furosemide 40 mg PO BID 05/01/17 [History] Hydrocortisone [Proctosol-HC] 1 applicful RC TID PRN 05/01/17 [History] L Acidophil/B Lactis/B Longum [Florajen3] 460 mg PO Q12H 05/01/17 [History] Levothyroxine 125 mcg PO ACBREAKFAST 05/01/17 [History] Lurasidone HCl [Latuda] 40 mg PO DAILY 05/01/17 [History] Magnesium Oxide 400 mg PO DAILY 05/01/17 [History] Methocarbamol [Robaxin] 500 mg PO Q6H PRN 05/01/17 [History] Minocycline [Minocin] 100 mg PO BID 05/01/17 [History] Mometasone Furoate [Nasonex [place]] 1 spray [place] DAILY 05/01/17 [History] Multivit-Min/FA/Lycopene/Lut [Certavite Sr with Lutein Tab] 1 each PO DAILY 12/13 [History] Ondansetron [Zofran] 4 mg PO Q8H PRN 05/01/17 [History] Potassium Chloride 10 meq PO DAILY 05/01/17 [History] Spironolact/Hydrochlorothiazid [Spironolactone-HCTZ 25-25] 1 tab PO DAILY [History] Topiramate 100 mg PO BEDTIME 05/01/17 [History] diphenhydrAMINE [Benadryl] 25 mg PO Q4H PRN 05/01/17 [History] Naproxen Sodium 500 gm MC BID #40 powder 05/26/17 [Rx] Past Medical History HEENT History: Reports: None Cardiovascular History: Reports: Hypertension Respiratory History: Reports: None Gastrointestinal History: Reports: GERD Genitourinary History: Reports: UTI, Recurrent, 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) Other Genitourinary History: kidney mass, dysuria 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: , 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) Other OB/BYN History: HRT Musculoskeletal History: Reports: Osteoarthritis Other Musculoskeletal History: Spinal stenosis, degenerative bone disease Neurological History: Reports: Migraines Psychiatric History: Reports: Anxiety, Depression, 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) Other Psychiatric History: insomnia, bipolar Endocrine/Metabolic History: Reports: Diabetes, Type II, Hyperthyroidism Hematologic History: Reports: Anemia, Iron Deficiency Immunologic History: Reports: None Oncologic (Cancer) History: Reports: None Dermatologic History: Reports: 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) Other Dermatologic History: neel infections - Infectious Disease History Infectious Disease History: Reports: 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) Other Infectious Disease History: MSSA - Past Surgical History HEENT Surgical History: Reports: None Respiratory Surgical History: Reports: None GI Surgical History: Reports: Bariatric Procedure Musculoskeletal Surgical History: Reports: 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) Social & Family History - Family History Family Medical History: Noncontributory HEENT: Reports: None Cardiac: Reports: None Respiratory: Reports: None GI: Reports: None : Reports: None OBGYN: Reports: None Musculoskeletal: Reports: None Neurological: Reports: None Psychiatric: Reports: Anxiety, Depression Endocrine/Metabolic: Reports: Diabetes, type II Hematologic: Reports: None Immunologic: Reports: None Oncologic: Reports: Bone, Pancreatic - Tobacco Use Smoking Status *Q: Never Smoker Years of Tobacco use: 20 Packs/Tins Daily: 0.5 Used Tobacco, but Quit: Yes Month Tobacco Last Used: March Second Hand Smoke Exposure: No - Caffeine Use Caffeine Use: Reports: Coffee, Energy Drinks, Soda, Tea - Recreational Drug Use Recreational Drug Use: No ED ROS GENERAL - Review of Systems Review Of Systems: ROS reveals no pertinent complaints other than HPI. ED EXAM, GENERAL - Physical Exam Exam: See Below (See dictation) Course - Vital Signs Last Recorded V/S: Last Vital Signs Temp 36.1 C 06/10/17 13:05 Pulse 107 H 06/10/17 13:05 Resp 18 06/10/17 13:05 BP 130/86 06/10/17 13:05 Pulse Ox 97 06/10/17 13:05 - Orders/Labs/Meds Orders: Active Orders 24 hr Category Date Time Status Ketorolac [Toradol] Med 06/10/17 13:38 Once 60 mg IM ONETIME ONE Meds: Medications Discontinued Medications Generic Name Dose Route Start Last Admin Trade Name Freq PRN Reason Stop Dose Admin Ketorolac Tromethamine 60 mg 06/10/17 13:38 Toradol IM 06/10/17 13:39 ONETIME ONE Departure - Departure Time of Disposition: 13:43 Disposition: Home, Self-Care 01 Condition: Good Clinical Impression: Rib pain on right side - Discharge Information Referrals: Jarocho Loco DO [Primary Care Provider] - Forms: ED Department Discharge Additional Instructions: The following information is given to patients seen in the emergency department who are being discharged to home. This information is to outline your options for follow-up care. We provide all patients seen in our emergency department with a follow-up referral. The need for follow-up, as well as the timing and circumstances, are variable depending upon the specifics of your emergency department visit. If you don't have a primary care physician on staff, we will provide you with a referral. We always advise you to contact your personal physician following an emergency department visit to inform them of the circumstance of the visit and for follow-up with them and/or the need for any referrals to a consulting specialist. The emergency department will also refer you to a specialist when appropriate. This referral assures that you have the opportunity for followup care with a specialist. All of these measure are taken in an effort to provide you with optimal care, which includes your followup. Under all circumstances we always encourage you to contact your private physician who remains a resource for coordinating your care. When calling for followup care, please make the office aware that this follow-up is from your recent emergency room visit. If for any reason you are refused follow-up, please contact the [facility] emergency department at and ask to speak to the emergency department charge nurse. [facility] Primary care- [place] [address] Please continue your Percocet and all other scheduled medications as prescribed. Please call and follow-up with Dr. Loco next week so that he can refer you to pain management. Return to ER as needed and as discussed - My Orders Last 24 Hours: My Active Orders 06/10/17 13:38 Ketorolac [Toradol] 60 mg IM ONETIME ONE - Assessment/Plan Last 24 Hours: My Active Orders 06/10/17 13:38 Ketorolac [Toradol] 60 mg IM ONETIME ONE
[2017-06-10] MEDS ORDERED: Ketorolac 60 MG/2 ML SDV IM ONE (13:38)
== END 2017-06-10 14:02 | disposition home or self-care (01) ==
LOC: MW.ED 12:25
DX: R07.81 Pleurodynia (principal); I10 Essential (primary) hypertension; E11.9 Type 2 diabetes mellitus without complications; K21.9 Gastro-esophageal reflux disease without esophagitis; M19.90 Unspecified osteoarthritis, unspecified site; F31.9 Bipolar disorder, unspecified; E05.90 Thyrotoxicosis, unspecified without thyrotoxic crisis or storm; Z86.2 Personal history of diseases of the blood and blood-forming organs and certain disorders involving the immune mechanism; Z87.891 Personal history of nicotine dependence; Z98.84 Bariatric surgery status; Z79.899 Other long term (current) drug therapy; Z88.0 Allergy status to penicillin; Z88.2 Allergy status to sulfonamides; Z88.8 Allergy status to other drugs, medicaments and biological substances
CPT/HCPCS: 96372; 99283; J1885

== ENCOUNTER 2017-06-15 12:49 | Emergency (ER) | payer MEDICARE, MEDICAID ==
--- NOTE | 2017-06-15 12:55 | EDM.PDOC ---
ED HPI GENERAL MEDICAL PROBLEM - General Stated Complaint: SIDE HURTS Time Seen by Provider: 06/15/17 12:51 - History of Present Illness INITIAL COMMENTS - FREE TEXT/NARRATIVE: HISTORY AND PHYSICAL: History of present illness: Patient 41-year-old white female is well-known to our emergency department is had multiple visits here is well-known to myself who is chronic pain syndrome these are multiple different areas of pain including her right knee her back her ribs who comes in with right rib pain today. She states she twisted and felt a pop in his concern about a rib fracture. Review of systems: As per history of present illness and below otherwise all systems reviewed and negative. Past medical history: As per history of present illness and as reviewed below otherwise noncontributory. Surgical history: As per history of present illness and as reviewed below otherwise noncontributory. Social history: No reported history of drug or alcohol abuse. Family history: As per history of present illness and as reviewed below otherwise noncontributory. Physical exam: HEENT: Atraumatic, normocephalic, pupils reactive, negative for conjunctival pallor or scleral icterus, mucous membranes moist, throat clear, neck supple, nontender, trachea midline. Lungs: Clear to auscultation, breath sounds equal bilaterally, chest nontender. Heart: S1S2, regular, negative for clicks, rubs, or JVD. Abdomen: Soft, nondistended, nontender. Negative for masses or hepatosplenomegaly. Negative for costovertebral tenderness. Pelvis: Stable nontender. Genitourinary: Deferred. Rectal: Deferred. Extremities: Atraumatic, negative for cords or calf pain. Neurovascular unremarkable. Neuro: Awake, alert, oriented. Cranial nerves II through XII unremarkable. Cerebellum unremarkable. Motor and sensory unremarkable throughout. Exam nonfocal. Diagnostics: Chest x-ray right rib x-ray Therapeutics: None Impression: #1 chronic pain syndrome #2 medical screening exam Definitive disposition and diagnosis as appropriate pending reevaluation and review of above. - Related Data Allergies Allergy/AdvReac Type Severity Reaction Status Date / Time adhesive tape Allergy Rash Verified 05/01/17 14:22 bupropion HCl Allergy Hives Verified 05/01/17 14:22 [From Wellbutrin] metoclopramide HCl Allergy Hives Verified 05/01/17 14:22 [From Reglan] Penicillins Allergy Hives Verified 05/24/17 17:07 Sulfa (Sulfonamide Allergy Hives Verified 05/01/17 14:22 Antibiotics) Home Meds: Home Meds Baclofen [Lioresal] 20 mg PO TID 12/06/15 [History] Esomeprazole [NexIUM] 40 mg PO BID 12/06/15 [History] Calcium Carb & Citrate/Vit D3 [Citracal + D ER] 2 tab PO DAILY 12/17/15 [History ] ARIPiprazole [Aripiprazole] 15 mg PO DAILY 05/01/17 [History] Celecoxib 200 mg PO BID 05/01/17 [History] DULoxetine [Cymbalta] 120 mg PO DAILY 05/01/17 [History] Estradiol [Estradiol Transdermal Patch] 0.075 mg TD MOFR 05/01/17 [History] Furosemide 40 mg PO BID 05/01/17 [History] Hydrocortisone [Proctosol-HC] 1 applicful RC TID PRN 05/01/17 [History] L Acidophil/B Lactis/B Longum [Florajen3] 460 mg PO Q12H 05/01/17 [History] Levothyroxine 125 mcg PO ACBREAKFAST 05/01/17 [History] Lurasidone HCl [Latuda] 40 mg PO DAILY 05/01/17 [History] Magnesium Oxide 400 mg PO DAILY 05/01/17 [History] Methocarbamol [Robaxin] 500 mg PO Q6H PRN 05/01/17 [History] Minocycline [Minocin] 100 mg PO BID 05/01/17 [History] Mometasone Furoate [Nasonex [place]] 1 spray [place] DAILY 05/01/17 [History] Multivit-Min/FA/Lycopene/Lut [Certavite Sr with Lutein Tab] 1 each PO DAILY 12/13 [History] Ondansetron [Zofran] 4 mg PO Q8H PRN 05/01/17 [History] Potassium Chloride 10 meq PO DAILY 05/01/17 [History] Spironolact/Hydrochlorothiazid [Spironolactone-HCTZ 25-25] 1 tab PO DAILY [History] Topiramate 100 mg PO BEDTIME 05/01/17 [History] diphenhydrAMINE [Benadryl] 25 mg PO Q4H PRN 05/01/17 [History] Naproxen Sodium 500 gm MC BID #40 powder 05/26/17 [Rx] Past Medical History HEENT History: Reports: None Cardiovascular History: Reports: Hypertension Respiratory History: Reports: None Gastrointestinal History: Reports: GERD Genitourinary History: Reports: UTI, Recurrent, 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) Other Genitourinary History: kidney mass, dysuria 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: , 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) Other OB/BYN History: HRT Musculoskeletal History: Reports: Osteoarthritis Other Musculoskeletal History: Spinal stenosis, degenerative bone disease Neurological History: Reports: Migraines Psychiatric History: Reports: Anxiety, Depression, 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) Other Psychiatric History: insomnia, bipolar Endocrine/Metabolic History: Reports: Diabetes, Type II, Hyperthyroidism Hematologic History: Reports: Anemia, Iron Deficiency Immunologic History: Reports: None Oncologic (Cancer) History: Reports: None Dermatologic History: Reports: 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) Other Dermatologic History: neel infections - Infectious Disease History Infectious Disease History: Reports: 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) Other Infectious Disease History: MSSA - Past Surgical History HEENT Surgical History: Reports: None Respiratory Surgical History: Reports: None GI Surgical History: Reports: Bariatric Procedure Musculoskeletal Surgical History: Reports: 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) Social & Family History - Family History Family Medical History: Noncontributory HEENT: Reports: None Cardiac: Reports: None Respiratory: Reports: None GI: Reports: None : Reports: None OBGYN: Reports: None Musculoskeletal: Reports: None Neurological: Reports: None Psychiatric: Reports: Anxiety, Depression Endocrine/Metabolic: Reports: Diabetes, type II Hematologic: Reports: None Immunologic: Reports: None Oncologic: Reports: Bone, Pancreatic - Tobacco Use Smoking Status *Q: Never Smoker Years of Tobacco use: 20 Packs/Tins Daily: 0.5 Used Tobacco, but Quit: Yes Month Tobacco Last Used: March Second Hand Smoke Exposure: No - Caffeine Use Caffeine Use: Reports: Coffee, Energy Drinks, Soda, Tea - Recreational Drug Use Recreational Drug Use: No ED ROS GENERAL - Review of Systems Review Of Systems: ROS reveals no pertinent complaints other than HPI. ED EXAM, GENERAL - Physical Exam Exam: See Below (See dictation) Course - Orders/Labs/Meds Orders: Active Orders 24 hr Category Date Time Status Chest 2V [CR] Stat Exams 06/15/17 12:52 Ordered Ribs 2V wo Chest Rt [CR] Stat Exams 06/15/17 12:52 Ordered Departure - Departure Time of Disposition: 12:54 Disposition: Home, Self-Care 01 Condition: Good Clinical Impression: Chronic pain syndrome, Encounter for medical screening examination - Discharge Information Additional Instructions: The following information is given to patients seen in the emergency department who are being discharged to home. This information is to outline your options for follow-up care. We provide all patients seen in our emergency department with a follow-up referral. The need for follow-up, as well as the timing and circumstances, are variable depending upon the specifics of your emergency department visit. If you don't have a primary care physician on staff, we will provide you with a referral. We always advise you to contact your personal physician following an emergency department visit to inform them of the circumstance of the visit and for follow-up with them and/or the need for any referrals to a consulting specialist. The emergency department will also refer you to a specialist when appropriate. This referral assures that you have the opportunity for followup care with a specialist. All of these measure are taken in an effort to provide you with optimal care, which includes your followup. Under all circumstances we always encourage you to contact your private physician who remains a resource for coordinating your care. When calling for followup care, please make the office aware that this follow-up is from your recent emergency room visit. If for any reason you are refused follow-up, please contact the [facility] emergency department at and asked to speak to the emergency department charge nurse. Follow-up primary medical doctor 1-2 days continue current medications return as needed as discussed - My Orders Last 24 Hours: My Active Orders 06/15/17 12:52 Chest 2V [CR] Stat Ribs 2V wo Chest Rt [CR] Stat - Assessment/Plan Last 24 Hours: My Active Orders 06/15/17 12:52 Chest 2V [CR] Stat Ribs 2V wo Chest Rt [CR] Stat
[2017-06-15 15:17] VITALS: BP 116/80
--- NOTE | 2017-06-16 16:26 | CR ---
EXAM DATE: 06/15/17 PATIENT'S AGE: 41 Patient: MARI VALDEZ Facility: [place], [place] Site . Site : 1975 Study: XRay Chest [id number] 2:04:30 PM Ordering Physician: Fela Dominguez Final Report: INDICATION: Chest pain. Shortness of breath. TECHNIQUE: Frontal lateral views of the chest and two views right ribs. COMPARISON: Radiograph 06/09/2017, 05/01/2017. FINDINGS: Cardiovascular and mediastinum: Heart size is normal. Pulmonary vasculature is normal. Mediastinum is within normal limits. Lungs and pleural spaces: There is minimal hazy opacity in the right upper lobe. The left lung is clear. No pleural effusion. No pneumothorax. Bones and soft tissues: Displaced posterior right rib fractures again noted. Posterior thoracolumbar fixation hardware noted. IMPRESSION: 1. Displaced posterior right rib fractures were present previously. 2. Minimal hazy opacity in the right upper lobe may represent pneumonia. Dictated by Seth Richards MD @ 06/15/2017 2:58:35 PM Dictated by: Seth Richards MD @ 06/15/2017 14:58:45 (Electronic Signature) Report Signed by Proxy. MONY
--- NOTE | 2017-06-16 16:27 | CR ---
EXAM DATE: 06/15/17 PATIENT'S AGE: 41 Patient: MARI VALDEZ Facility: [place], [place] Site . Site : 1975 Study: XRay Chest Right RIBS [id number]/17/2017 2:05:32 PM Ordering Physician: Fela Dominguez Final Report: INDICATION: Chest pain. Shortness of breath. TECHNIQUE: Frontal and lateral views of the chest and two views right ribs. COMPARISON: Radiograph 06/09/2017, 05/01/2017. FINDINGS: Cardiovascular and mediastinum: Heart size is normal. Pulmonary vasculature is normal. Mediastinum is within normal limits. Lungs and pleural spaces: There is minimal hazy opacity in the right upper lobe. The left lung is clear. No pleural effusion. No pneumothorax. Bones and soft tissues: Displaced posterior right rib fractures again noted. Posterior thoracolumbar fixation hardware noted. IMPRESSION: 1. Displaced posterior right rib fractures were present previously. 2. Minimal hazy opacity in the right upper lobe may represent pneumonia or resolving contusion. Dictated by Seth Richards MD @ 06/15/2017 2:59:17 PM Dictated by: Seth Richards MD @ 06/15/2017 15:00:31 (Electronic Signature) Report Signed by Proxy. MONY
== END 2017-06-15 15:16 | disposition home or self-care (01) ==
LOC: MW.ED 12:49
DX: G89.4 Chronic pain syndrome (principal); I10 Essential (primary) hypertension; K21.9 Gastro-esophageal reflux disease without esophagitis; E11.9 Type 2 diabetes mellitus without complications; E05.90 Thyrotoxicosis, unspecified without thyrotoxic crisis or storm; M19.90 Unspecified osteoarthritis, unspecified site; F41.9 Anxiety disorder, unspecified; F32.9 Major depressive disorder, single episode, unspecified; Z86.2 Personal history of diseases of the blood and blood-forming organs and certain disorders involving the immune mechanism; Z88.0 Allergy status to penicillin; Z87.440 Personal history of urinary (tract) infections; Z88.2 Allergy status to sulfonamides; Z79.899 Other long term (current) drug therapy
CPT/HCPCS: 71020; 71020-26; 71100-26-RT; 71100-RT; 99283

== ENCOUNTER 2017-09-26 11:22 | Emergency (ER) | payer MEDICARE, MEDICAID ==
[2017-09-26 11:46] VITALS: BP 113/77
--- NOTE | 2017-09-26 12:08 | EDM.PDOC ---
ED HPI GENERAL MEDICAL PROBLEM - General Chief Complaint: Upper Extremity Injury/Pain Stated Complaint: LOWER BACK PAIN AND LEFT HAND SWOLLEN Time Seen by Provider: 09/26/17 11:45 Source of Information: Reports: Patient History Limitations: Reports: No Limitations - History of Present Illness INITIAL COMMENTS - FREE TEXT/NARRATIVE: History of present illness: [42-year-old female presenting with left hand swelling and pain. Patient indicates she thinks she might have cellulitis] Review of systems: As per history of present illness and below otherwise all systems reviewed and negative. Past medical history: As per history of present illness and as reviewed below otherwise noncontributory. Surgical history: As per history of present illness and as reviewed below otherwise noncontributory. Social history: No reported history of drug or alcohol abuse. Family history: As per history of present illness and as reviewed below otherwise noncontributory. Physical exam: HEENT: Atraumatic, normocephalic, pupils reactive, negative for conjunctival pallor or scleral icterus, mucous membranes moist, throat clear, neck supple, nontender, trachea midline. Lungs: Clear to auscultation, breath sounds equal bilaterally, chest nontender. Heart: S1S2, regular, negative for clicks, rubs, or JVD. Abdomen: Soft, nondistended, nontender. Negative for masses or hepatosplenomegaly. Negative for costovertebral tenderness. Pelvis: Stable nontender. Genitourinary: Deferred. Rectal: Deferred. Extremities: Left hand with erythema and edema to the dorsal aspect, negative for cords or calf pain. Neurovascular unremarkable. Neuro: Awake, alert, oriented. Cranial nerves II through XII unremarkable. Cerebellum unremarkable. Motor and sensory unremarkable throughout. Exam nonfocal. Diagnostics: [] Therapeutics: [] Impression: [Left hand cellulitis] Plan: [Keflex, Medrol Dosepak] Definitive disposition and diagnosis as appropriate pending reevaluation and review of above. Left Hand Pain Score (Numeric/FACES): 7 - Related Data Allergies Allergy/AdvReac Type Severity Reaction Status Date / Time adhesive tape Allergy Rash Verified 09/26/17 11:36 bupropion HCl Allergy Hives Verified 09/26/17 11:36 [From Wellbutrin] metoclopramide HCl Allergy Hives Verified 09/26/17 11:36 [From Reglan] Penicillins Allergy Hives Verified 09/26/17 11:36 Sulfa (Sulfonamide Allergy Hives Verified 09/26/17 11:36 Antibiotics) Home Meds: Home Meds Baclofen [Lioresal] 20 mg PO TID 12/06/15 [History] Esomeprazole [NexIUM] 40 mg PO BID 12/06/15 [History] Calcium Carb & Citrate/Vit D3 [Citracal + D ER] 2 tab PO DAILY 12/17/15 [History ] ARIPiprazole [Aripiprazole] 15 mg PO DAILY 05/01/17 [History] Celecoxib 200 mg PO BID 05/01/17 [History] DULoxetine [Cymbalta] 120 mg PO DAILY 05/01/17 [History] Estradiol [Estradiol Transdermal Patch] 0.075 mg TD MOFR 05/01/17 [History] Furosemide 40 mg PO BID 05/01/17 [History] Hydrocortisone [Proctosol-HC] 1 applicful RC TID PRN 05/01/17 [History] L Acidophil/B Lactis/B Longum [Florajen3] 460 mg PO Q12H 05/01/17 [History] Levothyroxine 125 mcg PO ACBREAKFAST 05/01/17 [History] Lurasidone HCl [Latuda] 40 mg PO DAILY 05/01/17 [History] Magnesium Oxide 400 mg PO DAILY 05/01/17 [History] Methocarbamol [Robaxin] 500 mg PO Q6H PRN 05/01/17 [History] Minocycline [Minocin] 100 mg PO BID 05/01/17 [History] Mometasone Furoate [Nasonex [place]] 1 spray [place] DAILY 05/01/17 [History] Multivit-Min/FA/Lycopene/Lut [Certavite Sr with Lutein Tab] 1 each PO DAILY 12/13 [History] Ondansetron [Zofran] 4 mg PO Q8H PRN 05/01/17 [History] Potassium Chloride 10 meq PO DAILY 05/01/17 [History] Spironolact/Hydrochlorothiazid [Spironolactone-HCTZ 25-25] 1 tab PO DAILY [History] Topiramate 100 mg PO BEDTIME 05/01/17 [History] diphenhydrAMINE [Benadryl] 25 mg PO Q4H PRN 05/01/17 [History] Naproxen Sodium 500 gm MC BID #40 powder 05/26/17 [Rx] Cephalexin [Keflex] 500 mg PO QID #40 capsule 09/26/17 [Rx] methylPREDNISolone [Medrol] 4 mg PO DAILY #21 tab.ds.pk 09/26/17 [Rx] Past Medical History HEENT History: Reports: None Cardiovascular History: Reports: Hypertension Respiratory History: Reports: None Gastrointestinal History: Reports: GERD Genitourinary History: Reports: UTI, Recurrent, 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) Other Genitourinary History: kidney mass, dysuria 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: , 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) Other OB/BYN History: HRT Musculoskeletal History: Reports: Osteoarthritis Other Musculoskeletal History: Spinal stenosis, degenerative bone disease Neurological History: Reports: Migraines Psychiatric History: Reports: Addiction, Aggressive/Hostile Behaviors, Anxiety, Bipolar, Depression, 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) Other Psychiatric History: insomnia, bipolar Endocrine/Metabolic History: Reports: Diabetes, Type II, Hyperthyroidism Hematologic History: Reports: Anemia, Iron Deficiency Immunologic History: Reports: None Oncologic (Cancer) History: Reports: None Dermatologic History: Reports: 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) Other Dermatologic History: neel infections - Infectious Disease History Infectious Disease History: Reports: 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) Other Infectious Disease History: MSSA - Past Surgical History HEENT Surgical History: Reports: None Respiratory Surgical History: Reports: None GI Surgical History: Reports: Bariatric Procedure Musculoskeletal Surgical History: Reports: 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) Social & Family History - Family History Family Medical History: Noncontributory HEENT: Reports: None Cardiac: Reports: None Respiratory: Reports: None GI: Reports: None : Reports: None OBGYN: Reports: None Musculoskeletal: Reports: None Neurological: Reports: None Psychiatric: Reports: Anxiety, Depression Endocrine/Metabolic: Reports: Diabetes, type II Hematologic: Reports: None Immunologic: Reports: None Oncologic: Reports: Bone, Pancreatic - Tobacco Use Smoking Status *Q: Current Every Day Smoker Years of Tobacco use: 25 Packs/Tins Daily: 1 Used Tobacco, but Quit: Yes Month Tobacco Last Used: March Second Hand Smoke Exposure: No - Caffeine Use Caffeine Use: Reports: Coffee, Energy Drinks, Soda, Tea - Recreational Drug Use Recreational Drug Use: No Review of Systems - Review of Systems Review Of Systems: See Below (See history of present illness) ED EXAM, GENERAL - Physical Exam Exam: See Below (See history of present illness) Course - Vital Signs Last Recorded V/S: Last Vital Signs Temp 36.1 C 09/26/17 11:42 Pulse 106 H 09/26/17 11:42 Resp 20 09/26/17 11:42 BP 113/77 09/26/17 11:42 Pulse Ox 97 09/26/17 11:42 Departure - Departure Time of Disposition: 12:08 Disposition: Home, Self-Care 01 Condition: Good Clinical Impression: Cellulitis - Discharge Information Prescriptions: Cephalexin [Keflex] 500 mg PO QID #40 capsule methylPREDNISolone [Medrol] 4 mg PO DAILY #21 tab.ds.pk Referrals: Jarocho Loco DO [Primary Care Provider] - Additional Instructions: The following information is given to patients seen in the emergency department who are being discharged to home. This information is to outline your options for follow-up care. We provide all patients seen in our emergency department with a follow-up referral. The need for follow-up, as well as the timing and circumstances, are variable depending upon the specifics of your emergency department visit. If you don't have a primary care physician on staff, we will provide you with a referral. We always advise you to contact your personal physician following an emergency department visit to inform them of the circumstance of the visit and for follow-up with them and/or the need for any referrals to a consulting specialist. The emergency department will also refer you to a specialist when appropriate. This referral assures that you have the opportunity for follow-up care with a specialist. All of these measure are taken in an effort to provide you with optimal care, which includes your follow-up. Under all circumstances we always encourage you to contact your private physician who remains a resource for coordinating your care. When calling for follow-up care, please make the office aware that this follow-up is from your recent emergency room visit. If for any reason you are refused follow-up, please contact the [facility] Emergency Department at and asked to speak to the emergency department charge nurse. Take medication as directed Follow-up with PCP in 3-5 days Return to ED as needed as discussed
== END 2017-09-26 12:24 | disposition home or self-care (01) ==
LOC: MW.ED 11:22
DX: L03.114 Cellulitis of left upper limb (principal); I10 Essential (primary) hypertension; K21.9 Gastro-esophageal reflux disease without esophagitis; F31.9 Bipolar disorder, unspecified; E11.9 Type 2 diabetes mellitus without complications; F17.210 Nicotine dependence, cigarettes, uncomplicated; Z79.899 Other long term (current) drug therapy; Z88.0 Allergy status to penicillin; Z88.2 Allergy status to sulfonamides; Z88.8 Allergy status to other drugs, medicaments and biological substances; Z91.048 Other nonmedicinal substance allergy status
CPT/HCPCS: 99283

== ENCOUNTER 2017-12-11 10:20 | Emergency (ER) | payer MEDICARE, MEDICAID ==
--- NOTE | 2017-12-11 10:53 | EDM.PDOC ---
ED HPI GENERAL MEDICAL PROBLEM - General Chief Complaint: Upper Extremity Injury/Pain Stated Complaint: RIGHT SHOULDER PAIN Time Seen by Provider: 12/11/17 10:32 Source of Information: Reports: Patient - History of Present Illness INITIAL COMMENTS - FREE TEXT/NARRATIVE: HISTORY AND PHYSICAL: History of present illness: [Patient has right shoulder pain after putting on her pants today, she states she heard a loud pop and now has significant discomfort with movement of her right arm She has no to minimal one out of 10 pain at rest but increases to 7 or 8 out of 10 with movement especially above horizontal plane. Denies other injury or trauma No fever nausea vomiting chills sweats no chest pain shortness breath headache dizziness palpitation no bowel or urine symptoms She has history of recent spinal surgery secondary to kyphosis history in September this incision is well-healed clean and dry only scar remains actually appears to have been done prior to September. She also has history of total hysterectomy ] Review of systems: As per history of present illness and below otherwise all systems reviewed and negative. Past medical history: As per history of present illness and as reviewed below otherwise noncontributory. Surgical history: As per history of present illness and as reviewed below otherwise noncontributory. Social history: No reported history of drug or alcohol abuse. Family history: As per history of present illness and as reviewed below otherwise noncontributory. Physical exam: HEENT: Atraumatic, normocephalic, pupils reactive, negative for conjunctival pallor or scleral icterus, mucous membranes moist, throat clear, neck supple, nontender, trachea midline. Lungs: Clear to auscultation, breath sounds equal bilaterally, chest nontender. Heart: S1S2, regular, negative for clicks, rubs, or JVD. Abdomen: Soft, nondistended, nontender. Negative for masses or hepatosplenomegaly. Negative for costovertebral tenderness. Pelvis: Stable nontender. Genitourinary: Deferred. Rectal: Deferred. Extremities: Atraumatic, negative for cords or calf pain. Neurovascular unremarkable. Neuro: Awake, alert, oriented. Cranial nerves II through XII unremarkable. Cerebellum unremarkable. Motor and sensory unremarkable throughout. Exam nonfocal. Musculoskeletal: No pain with head movement elbow and wrist on affected she actually has full range of passive motion of this shoulder however she does have pain on full forward extension past horizontal which appears to stem from infraspinatus spasm as well as thoracic paraspinous muscle spasm with essentially trapezius distribution involvement as well on the right the joint itself is cold no redness warmth no open lesion bruising or swelling entire limb is neurovascularly intact Diagnostics: [Right shoulder complete Chest 1 view ] Therapeutics: [Continue current treatments Patient is requesting Toradol, she has done well with this in the past She will left discontinue Celebrex while on Toradol she is aware Follow-up with primary care for continued management ] Impression: Right shoulder girdle pain/muscle spasm History of nondisplaced rib fractures right and left, confirmed back to imaging on file as far back as May 2017 essentially unchanged Chronic history of baseline Definitive disposition and diagnosis as appropriate pending reevaluation and review of above. right shoulder Pain Score (Numeric/FACES): 7 - Related Data Allergies Allergy/AdvReac Type Severity Reaction Status Date / Time adhesive tape Allergy Rash Verified 12/11/17 10:31 bupropion HCl Allergy Hives Verified 12/11/17 10:31 [From Wellbutrin] metoclopramide HCl Allergy Hives Verified 12/11/17 10:31 [From Reglan] Penicillins Allergy Hives Verified 12/11/17 10:31 Sulfa (Sulfonamide Allergy Hives Verified 12/11/17 10:31 Antibiotics) Home Meds: Home Meds Baclofen [Lioresal] 20 mg PO TID 12/06/15 [History] Esomeprazole [NexIUM] 40 mg PO BID 12/06/15 [History] Calcium Carb & Citrate/Vit D3 [Citracal + D ER] 2 tab PO DAILY 12/17/15 [History ] ARIPiprazole [Aripiprazole] 15 mg PO DAILY 05/01/17 [History] Celecoxib 200 mg PO BID 05/01/17 [History] DULoxetine [Cymbalta] 120 mg PO DAILY 05/01/17 [History] Estradiol [Estradiol Transdermal Patch] 0.075 mg TD MOFR 05/01/17 [History] Furosemide 40 mg PO BID 05/01/17 [History] Hydrocortisone [Proctosol-HC] 1 applicful RC TID PRN 05/01/17 [History] L Acidophil/B Lactis/B Longum [Florajen3] 460 mg PO Q12H 05/01/17 [History] Levothyroxine 125 mcg PO ACBREAKFAST 05/01/17 [History] Lurasidone HCl [Latuda] 40 mg PO DAILY 05/01/17 [History] Magnesium Oxide 400 mg PO DAILY 05/01/17 [History] Methocarbamol [Robaxin] 500 mg PO Q6H PRN 05/01/17 [History] Minocycline [Minocin] 100 mg PO BID 05/01/17 [History] Mometasone Furoate [Nasonex [place]] 1 spray [place] DAILY 05/01/17 [History] Multivit-Min/FA/Lycopene/Lut [Certavite Sr with Lutein Tab] 1 each PO DAILY 12/13 [History] Ondansetron [Zofran] 4 mg PO Q8H PRN 05/01/17 [History] Potassium Chloride 10 meq PO DAILY 05/01/17 [History] Spironolact/Hydrochlorothiazid [Spironolactone-HCTZ 25-25] 1 tab PO DAILY [History] Topiramate 100 mg PO BEDTIME 05/01/17 [History] diphenhydrAMINE [Benadryl] 25 mg PO Q4H PRN 05/01/17 [History] Naproxen Sodium 500 gm MC BID #40 powder 05/26/17 [Rx] Cephalexin [Keflex] 500 mg PO QID #40 capsule 09/26/17 [Rx] methylPREDNISolone [Medrol] 4 mg PO DAILY #21 tab.ds.pk 09/26/17 [Rx] Past Medical History HEENT History: Reports: None Cardiovascular History: Reports: Hypertension Respiratory History: Reports: None Gastrointestinal History: Reports: GERD Genitourinary History: Reports: UTI, Recurrent, 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) Other Genitourinary History: kidney mass, dysuria 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: , 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) Other OB/BYN History: HRT Musculoskeletal History: Reports: Osteoarthritis Other Musculoskeletal History: Spinal stenosis, degenerative bone disease Neurological History: Reports: Migraines Psychiatric History: Reports: Addiction, Aggressive/Hostile Behaviors, Anxiety, Bipolar, Depression, 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) Other Psychiatric History: insomnia, bipolar Endocrine/Metabolic History: Reports: Diabetes, Type II, Hyperthyroidism Hematologic History: Reports: Anemia, Iron Deficiency Immunologic History: Reports: None Oncologic (Cancer) History: Reports: None Dermatologic History: Reports: 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) Other Dermatologic History: neel infections - Infectious Disease History Infectious Disease History: Reports: Chicken Pox, MRSA Other Infectious Disease History: MSSA - Past Surgical History HEENT Surgical History: Reports: None Respiratory Surgical History: Reports: None GI Surgical History: Reports: Bariatric Procedure Musculoskeletal Surgical History: Reports: 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) Other Musculoskeletal Surgeries/Procedures:: back surgery Social & Family History - Family History Family Medical History: Noncontributory HEENT: Reports: None Cardiac: Reports: None Respiratory: Reports: None GI: Reports: None : Reports: None OBGYN: Reports: None Musculoskeletal: Reports: None Neurological: Reports: None Psychiatric: Reports: Anxiety, Depression Endocrine/Metabolic: Reports: Diabetes, type II Hematologic: Reports: None Immunologic: Reports: None Oncologic: Reports: Bone, Pancreatic - Tobacco Use Smoking Status *Q: Current Every Day Smoker Years of Tobacco use: 30 Packs/Tins Daily: 0.1 Used Tobacco, but Quit: Yes Month/Year Tobacco Last Used: March Second Hand Smoke Exposure: No - Caffeine Use Caffeine Use: Reports: Coffee, Energy Drinks, Soda, Tea - Recreational Drug Use Recreational Drug Use: No Review of Systems - Review of Systems Review Of Systems: ROS reveals no pertinent complaints other than HPI. ED EXAM, GENERAL - Physical Exam Exam: See Below Course - Vital Signs Last Recorded V/S: Last Vital Signs Temp 97.7 F 12/11/17 10:31 Pulse 130 H 12/11/17 10:31 Resp 20 12/11/17 10:31 BP 120/72 12/11/17 10:31 Pulse Ox 96 12/11/17 10:31 Departure - Departure Time of Disposition: 11:57 Disposition: Home, Self-Care 01 Condition: Good Clinical Impression: Muscle spasm - Discharge Information Referrals: Rocio Licona NP [Primary Care Provider] - Forms: ED Department Discharge Additional Instructions: Toradol 10 mg by mouth 3 times a day when necessary #15 no refill As discussed he will have to stop her Celebrex while on Toradol 1 Toradol treatment is completed you may resume Celebrex as directed Return if symptoms persist or worsen or if new concerning symptoms develop Follow-up with her primary care in 2 weeks sooner as needed The following information is given to patients seen in the emergency department who are being discharged to home. This information is to outline your options for follow-up care. We provide all patients seen in our emergency department with a follow-up referral. The need for follow-up, as well as the timing and circumstances, are variable depending upon the specifics of your emergency department visit. If you don't have a primary care physician on staff, we will provide you with a referral. We always advise you to contact your personal physician following an emergency department visit to inform them of the circumstance of the visit and for follow-up with them and/or the need for any referrals to a consulting specialist. The emergency department will also refer you to a specialist when appropriate. This referral assures that you have the opportunity for follow-up care with a specialist. All of these measure are taken in an effort to provide you with optimal care, which includes your follow-up. Under all circumstances we always encourage you to contact your private physician who remains a resource for coordinating your care. When calling for follow-up care, please make the office aware that this follow-up is from your recent emergency room visit. If for any reason you are refused follow-up, please contact the [facility] emergency department at and asked to speak to the emergency department charge nurse.
--- NOTE | 2017-12-11 11:45 | CR ---
EXAMINATION: Right shoulder HISTORY: Pain COMPARISON: None TECHNIQUE: 3 views FINDINGS/IMPRESSION: The right shoulder is intact normal joint spaces and bone mineralization. Please see chest for rib fracture findings. Bone mineralization otherwise appears osteopenic.
--- NOTE | 2017-12-11 11:47 | CR ---
EXAMINATION: Portable chest radiograph. HISTORY: Shortness of breath. FINDINGS: The trachea is midline. The cardiomediastinal silhouette is within normal limits. No pulmonary infilt rates, effusions or pneumothorax. Scoliosis hardware is noted. Right right fifth through ninth posterior fractures are identified. Left fourth through 10th displaced rib fractures are noted. IMPRESSION: 1. Right fifth through ninth, and left fourth through 10th posterior rib fractures. 2. No underlying pleural effusion or pneumothorax.
[2017-12-11 12:10] VITALS: BP 111/71
== END 2017-12-11 12:08 | disposition home or self-care (01) ==
LOC: MW.ED 10:20
DX: M62.838 Other muscle spasm (principal); M25.511 Pain in right shoulder; Z87.81 Personal history of (healed) traumatic fracture; Z88.2 Allergy status to sulfonamides; Z88.0 Allergy status to penicillin; Z79.899 Other long term (current) drug therapy; Z98.1 Arthrodesis status; Z88.8 Allergy status to other drugs, medicaments and biological substances
CPT/HCPCS: 71045; 71045-26; 73030-26-RT; 73030-RT; 99283

== ENCOUNTER 2017-12-13 13:39 | Emergency (ER) | payer MEDICARE, MEDICAID ==
[2017-12-13] MEDS ORDERED: Lactated Ringers 1,000 ML IV ONE (13:51)
--- NOTE | 2017-12-13 13:53 | EDM.PDOC ---
ED HPI GENERAL MEDICAL PROBLEM - General Stated Complaint: CHEST PAIN Time Seen by Provider: 12/13/17 13:52 Source of Information: Reports: Patient - History of Present Illness INITIAL COMMENTS - FREE TEXT/NARRATIVE: HISTORY AND PHYSICAL: History of present illness: [42-year-old female with chronic pain fibromyalgia and chronic history of rib fractures left and right is in some chest wall pain, she recently has run out of her fentanyl patches she is in no distress at current no fever nausea vomiting chills sweats no shortness breath headache dizziness or palpitation no bowel or urine symptoms no diaphoresis Chest wall discomfort also resulted in the left arm discomfort both her reproducible and likely stem from fibromyalgia can reproduce pain with movement of her left arm she has spasm the bicep distribution I can reproduce sharp pain in her left arm with palpation here] She is in no distress she has been up to the bathroom and actually pain has been 0 out of 10 without palpation since arrival Review of systems: As per history of present illness and below otherwise all systems reviewed and negative. Past medical history: As per history of present illness and as reviewed below otherwise noncontributory. Surgical history: As per history of present illness and as reviewed below otherwise noncontributory. Social history: No reported history of drug or alcohol abuse. Family history: As per history of present illness and as reviewed below otherwise noncontributory. Physical exam: HEENT: Atraumatic, normocephalic, pupils reactive, negative for conjunctival pallor or scleral icterus, mucous membranes moist, throat clear, neck supple, nontender, trachea midline. Lungs: Clear to auscultation, breath sounds equal bilaterally, chest nontender. Heart: S1S2, regular, negative for clicks, rubs, or JVD. Abdomen: Soft, nondistended, nontender. Negative for masses or hepatosplenomegaly. Negative for costovertebral tenderness. Pelvis: Stable nontender. Genitourinary: Deferred. Rectal: Deferred. Extremities: Atraumatic, negative for cords or calf pain. Neurovascular unremarkable. Neuro: Awake, alert, oriented. Cranial nerves II through XII unremarkable. Cerebellum unremarkable. Motor and sensory unremarkable throughout. Exam nonfocal. Diagnostics: [CBC CMP UA troponin hCG EKG Chest 1 view ] Therapeutics: [Aspirin 324 mg chewable on arrival improved symptoms Nitroglycerin was ordered per protocol however now provided his pain was 0 out of 10 Oxycodone 10 mg by mouth 3 times a day #10 provided to prevent withdrawal Follow-up with primary care on Friday as scheduled for fentanyl refills and continued pain management ] Impression: Reproducible chest wall pain Chronic history baseline Definitive disposition and diagnosis as appropriate pending reevaluation and review of above. Left Breast Pain Score (Numeric/FACES): 6 - Related Data Allergies Allergy/AdvReac Type Severity Reaction Status Date / Time adhesive tape Allergy Rash Verified 12/13/17 13:49 bupropion HCl Allergy Hives Verified 12/13/17 13:49 [From Wellbutrin] metoclopramide HCl Allergy Hives Verified 12/13/17 13:49 [From Reglan] Penicillins Allergy Hives Verified 12/13/17 13:49 Sulfa (Sulfonamide Allergy Hives Verified 12/13/17 13:49 Antibiotics) Home Meds: Home Meds ARIPiprazole [Abilify Discmelt] 15 mg PO DAILY 12/11/17 [History] Baclofen 1 tab PO TID 12/11/17 [History] Celecoxib 200 mg PO BID 12/11/17 [History] DULoxetine [Cymbalta] 60 mg PO DAILY 12/11/17 [History] Esomeprazole [NexIUM] 40 mg PO DAILY 12/11/17 [History] Estradiol 0.5 mg PO DAILY 12/11/17 [History] Gabapentin [Gralise] 3 tab PO TID 12/11/17 [History] Levothyroxine Sodium [Synthroid] 137 mcg PO DAILY 12/11/17 [History] Lurasidone [Latuda] 2 tab PO DAILY 12/11/17 [History] Methocarbamol 3 tab PO Q6HR PRN 12/11/17 [History] Minocycline [Minocin] 100 mg PO BID 12/11/17 [History] OLANZapine [Olanzapine] 2.5 mg PO BID 12/11/17 [History] Ranitidine HCl [Ranitidine] 300 mg PO BEDTIME 12/11/17 [History] Zolpidem Tartrate [Edluar] 10 mg SL BEDTIME 12/11/17 [History] Past Medical History HEENT History: Reports: None Cardiovascular History: Reports: Hypertension Respiratory History: Reports: None Gastrointestinal History: Reports: GERD Genitourinary History: Reports: UTI, Recurrent, 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) Other Genitourinary History: kidney mass, dysuria 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: , 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) Other OB/BYN History: HRT Musculoskeletal History: Reports: Osteoarthritis Other Musculoskeletal History: Spinal stenosis, degenerative bone disease Neurological History: Reports: Migraines Psychiatric History: Reports: Addiction, Aggressive/Hostile Behaviors, Anxiety, Bipolar, Depression, 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) Other Psychiatric History: insomnia, bipolar Endocrine/Metabolic History: Reports: Diabetes, Type II, Hyperthyroidism Hematologic History: Reports: Anemia, Iron Deficiency Immunologic History: Reports: None Oncologic (Cancer) History: Reports: None Dermatologic History: Reports: 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) Other Dermatologic History: neel infections - Infectious Disease History Infectious Disease History: Reports: Chicken Pox, MRSA Other Infectious Disease History: MSSA - Past Surgical History HEENT Surgical History: Reports: None Respiratory Surgical History: Reports: None GI Surgical History: Reports: Bariatric Procedure Musculoskeletal Surgical History: Reports: 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) Other Musculoskeletal Surgeries/Procedures:: back surgery Social & Family History - Family History Family Medical History: Noncontributory HEENT: Reports: None Cardiac: Reports: None Respiratory: Reports: None GI: Reports: None : Reports: None OBGYN: Reports: None Musculoskeletal: Reports: None Neurological: Reports: None Psychiatric: Reports: Anxiety, Depression Endocrine/Metabolic: Reports: Diabetes, type II Hematologic: Reports: None Immunologic: Reports: None Oncologic: Reports: Bone, Pancreatic - Tobacco Use Smoking Status *Q: Current Every Day Smoker Years of Tobacco use: 30 Packs/Tins Daily: 0.1 Used Tobacco, but Quit: Yes Month/Year Tobacco Last Used: March Second Hand Smoke Exposure: No - Caffeine Use Caffeine Use: Reports: Coffee, Energy Drinks, Soda, Tea - Recreational Drug Use Recreational Drug Use: No ED ROS GENERAL - Review of Systems Review Of Systems: ROS reveals no pertinent complaints other than HPI. ED EXAM, GENERAL - Physical Exam Exam: See Below Course - Vital Signs Last Recorded V/S: Last Vital Signs Temp 97.0 F 12/13/17 13:48 Pulse 80 12/13/17 13:48 Resp 20 12/13/17 13:48 BP 130/81 12/13/17 13:48 Pulse Ox 95 12/13/17 13:48 - Orders/Labs/Meds Orders: Active Orders 24 hr Category Date Time Status EKG Documentation Completion [RC] STAT Care 12/13/17 13:51 Active Chest 1V Frontal [CR] Stat Exams 12/13/17 13:51 Taken Nitroglycerin [Nitrostat] Med 12/13/17 14:11 Active 0.4 mg SL Q5M PRN Medication Orders Nitroglycerin (Nitrostat) 0.4 mg SL Q5M PRN PRN Reason: Chest Pain Labs: Laboratory Tests 12/13/17 12/13/17 12/13/17 Range/Units 14:10 14:10 15:30 WBC 6.93 (4.0-11.0) K/uL RBC 3.88 L (4.30-5.90) M/uL Hgb 11.4 L (12.0-16.0) g/dL Hct 35.4 L (36.0-46.0) % MCV 91.2 (80.0-98.0) fL MCH 29.4 (27.0-32.0) pg MCHC 32.2 (31.0-37.0) g/dL RDW Std Deviation 48.8 (28.0-62.0) fl RDW Coeff of Joslyn 15 (11.0-15.0) % Plt Count 248 (150-400) K/uL MPV 9.30 (7.40-12.00) fL Neut % (Auto) 67.5 (48.0-80.0) % Lymph % (Auto) 23.2 (16.0-40.0) % [place] % (Auto) 5.9 (0.0-15.0) % Eos % (Auto) 3.3 (0.0-7.0) % Baso % (Auto) 0.1 (0.0-1.5) % Neut # (Auto) 4.7 (1.4-5.7) K/uL Lymph # (Auto) 1.6 (0.6-2.4) K/uL [place] # (Auto) 0.4 (0.0-0.8) K/uL Eos # (Auto) 0.2 (0.0-0.7) K/uL Baso # (Auto) 0.0 (0.0-0.1) K/uL Nucleated RBC % 0.0 /100WBC Nucleated RBCs # 0 K/uL Sodium 138 (136-145) mmol/L Potassium 4.4 (3.5-5.1) mmol/L Chloride 105 (98-107) mmol/L Carbon Dioxide 23.1 (21.0-32.0) mmol/L BUN 22 H (7.0-18.0) mg/dL Creatinine 0.9 (0.6-1.0) mg/dL Est Cr Clr Drug Dosing 73.27 mL/min Estimated GFR (MDRD) > 60.0 ml/min Glucose 85 (74-106) mg/dL Calcium 8.6 (8.5-10.1) mg/dL Total Bilirubin 0.4 (0.2-1.0) mg/dL AST 24 (15-37) IU/L ALT 22 (14-63) IU/L Alkaline Phosphatase 278 H (46-116) U/L Troponin I < 0.050 (0.000-0.056) ng/mL Total Protein 6.3 L (6.4-8.2) g/dL Albumin 2.6 L (3.4-5.0) g/dL Globulin 3.7 H (2.0-3.5) g/dL Albumin/Globulin Ratio 0.7 L (1.3-2.8) Lipase 92 (73-393) U/L Urine Color YELLOW Urine Appearance CLEAR Urine pH 5.0 (5.0-8.0) Ur Specific [place] 1.010 (1.001-1.035) Urine Protein NEGATIVE (NEGATIVE) mg/dL Urine Glucose (UA) NEGATIVE (NEGATIVE) mg/dL Urine Ketones NEGATIVE (NEGATIVE) mg/dL Urine Occult Blood NEGATIVE (NEGATIVE) Urine Nitrite NEGATIVE (NEGATIVE) Urine Bilirubin NEGATIVE (NEGATIVE) Urine Urobilinogen 0.2 (<2.0) EU/dL Ur Leukocyte Esterase NEGATIVE (NEGATIVE) Urine RBC NONE SEEN (0-2/HPF) Urine WBC RARE (0-5/HPF) Ur Epithelial Cells FEW (NONE-FEW) Urine Bacteria FEW (NEGATIVE) Urine HCG, Qual (NEGATIVE) 12/13/17 Range/Units 15:30 WBC (4.0-11.0) K/uL RBC (4.30-5.90) M/uL Hgb (12.0-16.0) g/dL Hct (36.0-46.0) % MCV (80.0-98.0) fL MCH (27.0-32.0) pg MCHC (31.0-37.0) g/dL RDW Std Deviation (28.0-62.0) fl RDW Coeff of Joslyn (11.0-15.0) % Plt Count (150-400) K/uL MPV (7.40-12.00) fL Neut % (Auto) (48.0-80.0) % Lymph % (Auto) (16.0-40.0) % [place] % (Auto) (0.0-15.0) % Eos % (Auto) (0.0-7.0) % Baso % (Auto) (0.0-1.5) % Neut # (Auto) (1.4-5.7) K/uL Lymph # (Auto) (0.6-2.4) K/uL [place] # (Auto) (0.0-0.8) K/uL Eos # (Auto) (0.0-0.7) K/uL Baso # (Auto) (0.0-0.1) K/uL Nucleated RBC % /100WBC Nucleated RBCs # K/uL Sodium (136-145) mmol/L Potassium (3.5-5.1) mmol/L Chloride (98-107) mmol/L Carbon Dioxide (21.0-32.0) mmol/L BUN (7.0-18.0) mg/dL Creatinine (0.6-1.0) mg/dL Est Cr Clr Drug Dosing mL/min Estimated GFR (MDRD) ml/min Glucose (74-106) mg/dL Calcium (8.5-10.1) mg/dL Total Bilirubin (0.2-1.0) mg/dL AST (15-37) IU/L ALT (14-63) IU/L Alkaline Phosphatase (46-116) U/L Troponin I (0.000-0.056) ng/mL Total Protein (6.4-8.2) g/dL Albumin (3.4-5.0) g/dL Globulin (2.0-3.5) g/dL Albumin/Globulin Ratio (1.3-2.8) Lipase (73-393) U/L Urine Color Urine Appearance Urine pH (5.0-8.0) Ur Specific [place] (1.001-1.035) Urine Protein (NEGATIVE) mg/dL Urine Glucose (UA) (NEGATIVE) mg/dL Urine Ketones (NEGATIVE) mg/dL Urine Occult Blood (NEGATIVE) Urine Nitrite (NEGATIVE) Urine Bilirubin (NEGATIVE) Urine Urobilinogen (<2.0) EU/dL Ur Leukocyte Esterase (NEGATIVE) Urine RBC (0-2/HPF) Urine WBC (0-5/HPF) Ur Epithelial Cells (NONE-FEW) Urine Bacteria (NEGATIVE) Urine HCG, Qual NEGATIVE (NEGATIVE) Meds: Medications Generic Name Dose Route Start Last Admin Trade Name Freq PRN Reason Stop Dose Admin Nitroglycerin 0.4 mg 12/13/17 14:11 Nitrostat SL Q5M PRN Chest Pain Discontinued Medications Generic Name Dose Route Start Last Admin Trade Name Freq PRN Reason Stop Dose Admin Aspirin 324 mg 12/13/17 14:11 12/13/17 14:53 Aspirin PO 12/13/17 14:12 324 mg ONETIME ONE Administration Lactated Ringer's 1,000 mls @ 999 mls/hr 12/13/17 13:51 12/13/17 14:05 Ringers, Lactated IV 12/13/17 14:51 999 mls/hr .BOLUS ONE Administration Departure - Departure Time of Disposition: 16:15 Disposition: Home, Self-Care 01 Condition: Good Clinical Impression: Chronic pain, Fibromyalgia - Discharge Information Referrals: PCP,None [Primary Care Provider] - Additional Instructions: Medication as prescribed Follow-up with primary care on Friday as scheduled for continued pain management Return if symptoms persist or worsen or new concerning symptoms develop The following information is given to patients seen in the emergency department who are being discharged to home. This information is to outline your options for follow-up care. We provide all patients seen in our emergency department with a follow-up referral. The need for follow-up, as well as the timing and circumstances, are variable depending upon the specifics of your emergency department visit. If you don't have a primary care physician on staff, we will provide you with a referral. We always advise you to contact your personal physician following an emergency department visit to inform them of the circumstance of the visit and for follow-up with them and/or the need for any referrals to a consulting specialist. The emergency department will also refer you to a specialist when appropriate. This referral assures that you have the opportunity for follow-up care with a specialist. All of these measure are taken in an effort to provide you with optimal care, which includes your follow-up. Under all circumstances we always encourage you to contact your private physician who remains a resource for coordinating your care. When calling for follow-up care, please make the office aware that this follow-up is from your recent emergency room visit. If for any reason you are refused follow-up, please contact the [facility] emergency department at and asked to speak to the emergency department charge nurse. - My Orders Last 24 Hours: My Active Orders 12/13/17 13:51 EKG Documentation Completion [RC] STAT Chest 1V Frontal [CR] Stat 12/13/17 14:11 Nitroglycerin [Nitrostat] 0.4 mg SL Q5M PRN - Assessment/Plan Last 24 Hours: My Active Orders 12/13/17 13:51 EKG Documentation Completion [RC] STAT Chest 1V Frontal [CR] Stat 12/13/17 14:11 Nitroglycerin [Nitrostat] 0.4 mg SL Q5M PRN
[2017-12-13] MEDS ORDERED: Nitroglycerin 0.4 MG Tab.SL SL PRN (14:11)
[2017-12-13] MEDS ORDERED: Aspirin 81 MG Tab.Chew PO ONE (14:11)
[2017-12-13 14:44] LABS: CHLORIDE,CL 105 mmol/L (98-107); SODIUM,NA 138 mmol/L (136-145)
[2017-12-13 17:12] VITALS: BP 119/78
--- NOTE | 2017-12-15 15:59 | CR ---
EXAM DATE: 12/13/17 PATIENT'S AGE: 42 Patient: MARI VALDEZ Facility: [place], [place] Site . Site : 1975 Study: XRay Chest [id number]/17/2018 3:06:24 PM Ordering Physician: Marce Kendrick Final Report: HISTORY: Chest pain. TECHNIQUE: One view of the chest. COMPARISON: No prior. FINDINGS: Cardiac size within normal limits accounting for technique. There is no pulmonary vascular redistribution. No acute lung infiltrate or pulmonary edema. No pneumothorax or pleural effusion. Fractures of several right posterior ribs including the 2nd through 6th and possibly 7th rib of uncertain chronicity. Prior spinal instrumentation. IMPRESSION: 1. No acute cardiopulmonary disease. 2. Multiple right-sided rib fractures of uncertain chronicity. Dictated by Ezio Sommers MD @ 12/13/2017 3:29:46 PM Dictated by: Ezio Sommers MD @ 12/13/2017 15:29:52 (Electronic Signature) Report Signed by Proxy. [facility]
== END 2017-12-13 16:45 | disposition home or self-care (01) ==
LOC: MW.ED 13:39
DX: R07.89 Other chest pain (principal); M79.7 Fibromyalgia; G89.29 Other chronic pain; I10 Essential (primary) hypertension; K21.9 Gastro-esophageal reflux disease without esophagitis; M19.90 Unspecified osteoarthritis, unspecified site; E11.9 Type 2 diabetes mellitus without complications; F17.210 Nicotine dependence, cigarettes, uncomplicated; E05.90 Thyrotoxicosis, unspecified without thyrotoxic crisis or storm; D50.9 Iron deficiency anemia, unspecified; Z86.14 Personal history of Methicillin resistant Staphylococcus aureus infection; Z88.8 Allergy status to other drugs, medicaments and biological substances; Z87.440 Personal history of urinary (tract) infections; Z88.0 Allergy status to penicillin; Z91.048 Other nonmedicinal substance allergy status; Z88.2 Allergy status to sulfonamides; Z86.19 Personal history of other infectious and parasitic diseases; Z79.899 Other long term (current) drug therapy
CPT/HCPCS: 36415; 71045; 80053; 81001; 81025; 83690; 84484; 85025; 93005; 96360; 99285; A9270; J7120; 99283

== ENCOUNTER 2018-01-13 18:42 | Observation (INO) | payer MEDICARE, MEDICAID, OTHER ==
--- NOTE | 2018-01-13 19:36 | EDM.PDOC ---
ED HPI GENERAL MEDICAL PROBLEM - General Chief Complaint: General Stated Complaint: PT HAS BROKEN RIB Time Seen by Provider: 01/13/18 19:14 - History of Present Illness INITIAL COMMENTS - FREE TEXT/NARRATIVE: HISTORY AND PHYSICAL: History of present illness: 42-year-old female with history of fibromyalgia osteopenia prior rib fractures multiple pain syndromes and seen multiple times prior and presents now with concern of possible left rib injury she states she was lifting something and felt a pull was concerned about possible acute left rib fractures no shortness of breath nausea vomiting or other complaints. Patient states she's had this pain in the past on multiple occasions. Review of systems: As per history of present illness and below otherwise all systems reviewed and negative. Past medical history: As per history of present illness and as reviewed below otherwise noncontributory. Surgical history: As per history of present illness and as reviewed below otherwise noncontributory. Social history: No reported history of drug or alcohol abuse. Family history: As per history of present illness and as reviewed below otherwise noncontributory. Physical exam: HEENT: Atraumatic, normocephalic, pupils reactive, negative for conjunctival pallor or scleral icterus, mucous membranes moist, throat clear, neck supple, nontender, trachea midline. Lungs: Clear to auscultation, breath sounds equal bilaterally, no localized rib tenderness no crepitation Heart: S1S2, regular, negative for clicks, rubs, or JVD. Abdomen: Soft, nondistended, nontender. Negative for masses or hepatosplenomegaly. Negative for costovertebral tenderness. Pelvis: Stable nontender. Genitourinary: Deferred. Rectal: Deferred. Extremities: Atraumatic, negative for cords or calf pain. Neurovascular unremarkable. Neuro: Awake, alert, oriented. Follows commands moves all extremities is limited but grossly nonfocal exam Diagnostics: Chest x-ray with left ribs Therapeutics: None Impression: #1 Chronic intermittent left rib pain #2 history of fibromyalgia Definitive disposition and diagnosis as appropriate pending reevaluation and review of above. left rib Pain Score (Numeric/FACES): 7 - Related Data Allergies Allergy/AdvReac Type Severity Reaction Status Date / Time adhesive tape Allergy Rash Verified 01/13/18 19:06 bupropion HCl Allergy Hives Verified 01/13/18 19:06 [From Wellbutrin] metoclopramide HCl Allergy Hives Verified 01/13/18 19:06 [From Reglan] Penicillins Allergy Hives Verified 01/13/18 19:06 Sulfa (Sulfonamide Allergy Hives Verified 01/13/18 19:06 Antibiotics) Home Meds: Home Meds ARIPiprazole [Abilify Discmelt] 15 mg PO DAILY 12/11/17 [History] Baclofen 1 tab PO TID 12/11/17 [History] Celecoxib 200 mg PO BID 12/11/17 [History] DULoxetine [Cymbalta] 60 mg PO DAILY 12/11/17 [History] Esomeprazole [NexIUM] 40 mg PO DAILY 12/11/17 [History] Estradiol 0.5 mg PO DAILY 12/11/17 [History] Gabapentin [Gralise] 3 tab PO TID 12/11/17 [History] Levothyroxine Sodium [Synthroid] 137 mcg PO DAILY 12/11/17 [History] Lurasidone [Latuda] 2 tab PO DAILY 12/11/17 [History] Methocarbamol 3 tab PO Q6HR PRN 12/11/17 [History] Minocycline [Minocin] 100 mg PO BID 12/11/17 [History] OLANZapine [Olanzapine] 2.5 mg PO BID 12/11/17 [History] Ranitidine HCl [Ranitidine] 300 mg PO BEDTIME 12/11/17 [History] Zolpidem Tartrate [Edluar] 10 mg SL BEDTIME 12/11/17 [History] Past Medical History HEENT History: Reports: None Cardiovascular History: Reports: Hypertension Respiratory History: Reports: None Gastrointestinal History: Reports: GERD Genitourinary History: Reports: UTI, Recurrent, 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) Other Genitourinary History: kidney mass, dysuria 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: , 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) Other OB/BYN History: HRT Musculoskeletal History: Reports: Osteoarthritis Other Musculoskeletal History: Spinal stenosis, degenerative bone disease Neurological History: Reports: Migraines Psychiatric History: Reports: Addiction, Aggressive/Hostile Behaviors, Anxiety, Bipolar, Depression, 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) Other Psychiatric History: insomnia, bipolar Endocrine/Metabolic History: Reports: Diabetes, Type II, Hyperthyroidism Hematologic History: Reports: Anemia, Iron Deficiency Immunologic History: Reports: None Oncologic (Cancer) History: Reports: None Dermatologic History: Reports: 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) Other Dermatologic History: neel infections - Infectious Disease History Infectious Disease History: Reports: Chicken Pox, MRSA Other Infectious Disease History: MSSA - Past Surgical History HEENT Surgical History: Reports: None Respiratory Surgical History: Reports: None GI Surgical History: Reports: Bariatric Procedure Musculoskeletal Surgical History: Reports: 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) Other Musculoskeletal Surgeries/Procedures:: back surgery Social & Family History - Family History Family Medical History: Noncontributory HEENT: Reports: None Cardiac: Reports: None Respiratory: Reports: None GI: Reports: None : Reports: None OBGYN: Reports: None Musculoskeletal: Reports: None Neurological: Reports: None Psychiatric: Reports: Anxiety, Depression Endocrine/Metabolic: Reports: Diabetes, type II Hematologic: Reports: None Immunologic: Reports: None Oncologic: Reports: Bone, Pancreatic - Tobacco Use Smoking Status *Q: Never Smoker Years of Tobacco use: 30 Packs/Tins Daily: 0.1 Used Tobacco, but Quit: Yes Month/Year Tobacco Last Used: March Second Hand Smoke Exposure: No - Caffeine Use Caffeine Use: Reports: Other - Recreational Drug Use Recreational Drug Use: No ED ROS GENERAL - Review of Systems Review Of Systems: ROS reveals no pertinent complaints other than HPI. ED EXAM, GENERAL - Physical Exam Exam: See Below (See dictation) Course - Vital Signs Last Recorded V/S: Last Vital Signs Temp 35.9 C 01/13/18 19:07 Pulse 78 01/13/18 19:07 Resp 20 01/13/18 19:07 BP 138/82 01/13/18 19:07 Pulse Ox 98 01/13/18 19:07 - Orders/Labs/Meds Orders: Active Orders 24 hr Category Date Time Status Ribs 2V w Chest Lt [CR] Stat Exams 01/13/18 19:20 Ordered Departure - Departure Time of Disposition: 19:36 Disposition: Home, Self-Care 01 Condition: Good Clinical Impression: Rib injury, History of fibromyalgia - Discharge Information Referrals: PCP,None [Primary Care Provider] - Additional Instructions: The following information is given to patients seen in the emergency department who are being discharged to home. This information is to outline your options for follow-up care. We provide all patients seen in our emergency department with a follow-up referral. The need for follow-up, as well as the timing and circumstances, are variable depending upon the specifics of your emergency department visit. If you don't have a primary care physician on staff, we will provide you with a referral. We always advise you to contact your personal physician following an emergency department visit to inform them of the circumstance of the visit and for follow-up with them and/or the need for any referrals to a consulting specialist. The emergency department will also refer you to a specialist when appropriate. This referral assures that you have the opportunity for followup care with a specialist. All of these measure are taken in an effort to provide you with optimal care, which includes your followup. Under all circumstances we always encourage you to contact your private physician who remains a resource for coordinating your care. When calling for followup care, please make the office aware that this follow-up is from your recent emergency room visit. If for any reason you are refused follow-up, please contact the [facility] emergency department at and asked to speak to the emergency department charge nurse. Follow-up primary medical doctor continue current meds return as needed as discussed - My Orders Last 24 Hours: My Active Orders 01/13/18 19:20 Ribs 2V w Chest Lt [CR] Stat - Assessment/Plan Last 24 Hours: My Active Orders 01/13/18 19:20 Ribs 2V w Chest Lt [CR] Stat
[2018-01-13] MEDS ORDERED: Morphine 4 MG/ML Syringe IVPUSH ONE ×2 (20:44→22:18)
[2018-01-13] MEDS ORDERED: Ondansetron 4 MG/2 ML SDV IVPUSH ONE (20:47)
[2018-01-13] MEDS ORDERED: Morphine 10 MG/ML Syringe IVPUSH STA (22:17)
[2018-01-13] MEDS ORDERED: HYDROmorphone 2 MG/ML SDV IVPUSH PRN (23:40)
[2018-01-13] MEDS ORDERED: Ondansetron 4 MG/2 ML SDV IVPUSH PRN (23:40)
[2018-01-13] MEDS ORDERED: oxyCODONE 5 MG Tab PO PRN (23:40)
[2018-01-14] MEDS ORDERED: HYDROmorphone 1 MG/ML Syringe IM STA (02:52)
[2018-01-14] MEDS: Gabapentin 300 MG Cap PO SCH ×2 (03:11→06:33)
[2018-01-14 06:26] LABS: CHLORIDE,CL 110 mmol/L (98-107); SODIUM,NA 140 mmol/L (136-145)
[2018-01-14] MEDS ORDERED: HYDROmorphone 1 MG/ML Syringe IVPUSH PRN (07:45)
[2018-01-14 07:54] VITALS: BP 120/70
[2018-01-14] MEDS ORDERED: Gabapentin 300 MG Cap PO ONE (08:00)
[2018-01-14] MEDS ORDERED: HYDROmorphone 2 MG Tab PO PRN (08:57)
[2018-01-14] MEDS ORDERED: METHOCARBAMOL 1500 MG PO PRN (08:57)
[2018-01-14] MEDS ORDERED: Levothyroxine 112 MCG Tab PO SCH (09:00)
[2018-01-14] MEDS ORDERED: Celecoxib 100 MG Cap PO SCH (09:00)
[2018-01-14] MEDS ORDERED: DULoxetine 60 MG Cap PO SCH (09:00)
[2018-01-14] MEDS ORDERED: LATUDA 40 MG PO SCH (09:00)
[2018-01-14] MEDS ORDERED: MINOCYCLINE 100 MG PO SCH (09:00)
[2018-01-14] MEDS ORDERED: Levothyroxine 25 MCG Tab PO SCH (09:00)
[2018-01-14] MEDS ORDERED: OLANZapine 5 MG Tab PO SCH (09:00)
[2018-01-14] MEDS ORDERED: Omeprazole 20 MG Cap.CR PO SCH (09:00)
[2018-01-14] MEDS ORDERED: Baclofen 10 MG Tab PO SCH (09:15)
--- NOTE | 2018-01-14 09:46 | CR ---
EXAM DATE: 01/13/18 PATIENT'S AGE: 42 Patient: MARI VALDEZ Facility: [place], [place] Site . Site : 1975 Study: XRay Chest RIBS [id number]/17/2018 8:07:21 PM Ordering Physician: Fela Dominguez Final Report: INDICATION : Left-sided lower rib pain. TECHNIQUE : Chest with rib detail views LEFT ribs. 5 Views COMPARISON: 12/13/2017 FINDINGS : Multiple left rib fracture deformities, likely involving the left 2nd, 3rd, and 4th ribs. No additional lower left rib fractures. Small left apical pneumothorax suspected. No displaced right rib fractures. Thoracic spinal hardware. IMPRESSION : Displaced lateral upper left rib fractures, likely involving the left 2nd through 4th ribs. Tiny left apical pneumothorax suspected. Dictated by Jean Chatman MD @ 01/13/2018 8:29:53 PM Dictated by: Jean Chatman MD @ 01/13/2018 20:30:06 ----- ADDENDUM ----- ADDENDUM: 1. DENAE Vega confirmed report receipt on 01/13/2018 at 8:38pm [employer] DEVEL[employer]. Dictated by Jean Chatman MD @ Jan 13 2018 8:48PM (Electronic Signature) Report Signed by Proxy. [facility]
--- NOTE | 2018-01-14 09:47 | CT ---
EXAM DATE: 01/13/18 PATIENT'S AGE: 42 Patient: MARI VALDEZ Facility: [place], [place] Site . Site : 1975 Study: CT Chest [id number]/17/2018 9:25:16 PM Ordering Physician: Fela Dominguez Final Report: INDICATION: Possible pneumothorax on chest radiograph TECHNIQUE: CT chest without contrast. COMPARISON: Rib radiographs from same date FINDINGS: Cardiovascular structures: Heart size is normal. Thoracic aorta and main pulmonary artery are normal in caliber. Mediastinum and troy: No sign of mass or adenopathy. Lungs: Minimal patchy opacity in the periphery of the left upper lobe adjacent to the left lateral 3rd rib. Pleura and pericardium: No effusions. Chest wall and axilla: No mass or adenopathy. Upper abdomen: S/p cholecystectomy. Postsurgical changes noted within the stomach. There is a contained focus of air within the left upper anterior abdominal wall, incompletely visualized on this exam. This likely represents a ventral hernia containing a loop of bowel. Bones: Extensive posterior internal fixation hardware within the thoracic spine. The hardware extends from the T4 through L2 levels. There is anterior subluxation of T3 on T4 with focal angulation of the thoracic spine at this level. There is uncovering of the disc that joints bilaterally. No prevertebral hematoma identified. Multiple subacute to remote appearing rib fractures. There are acute fractures of the left lateral 3rd and 6th ribs. There are subacute fractures of the left lateral 4th and 5th ribs. IMPRESSION: 1. Acute fractures of the left lateral 3rd and 6th ribs. Subacute fractures of the left lateral 4th and 5th ribs. No pneumothorax. Remote bilateral rib fractures. 2. There is 0.5 cm anterior subluxation of T3 on T4 with focal angulation of the spine at this level and uncovering of the bilateral facets. There is some sclerosis involving the end plates of the T3 and T4 vertebrae which suggests at least a part of this finding is remote in nature, however a superimposed acute injury cannot be excluded. If there is focal pain or tenderness at this site, recommend neurosurgical consultation. These findings were discussed with Dr. Chahal at 10:13 p.m. on January 13, 2018. 3. Minimal patchy opacity in the periphery of the left upper lobe may represent small amount of pulmonary contusion or atelectasis. 4. Partial visualization of likely a ventral hernia in the left upper anterior abdominal wall. 5. Status post cholecystectomy. . Please note that all CT scans at this facility use dose modulation, iterative reconstruction, and/or weight-based dosing when appropriate to reduce radiation dose to as low as reasonably achievable. Dictated by Iva Morales MD @ Jan 13 2018 9:42PM (Electronic Signature) Report Signed by Proxy. MTDD
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
[2018-01-14] MEDS ORDERED: Famotidine 20 MG Tab PO SCH (21:00)
== END 2018-01-14 12:00 | disposition home or self-care (01) ==
LOC: MW.ED 18:42 → MW.MS 22:19
PROVIDERS: ADMIT Internal Medicine; ATTEND Internal Medicine
DX: S22.42XA Multiple fractures of ribs, left side, initial encounter for closed fracture (principal); G89.29 Other chronic pain; M54.9 Dorsalgia, unspecified; M85.80 Other specified disorders of bone density and structure, unspecified site; I10 Essential (primary) hypertension; K21.9 Gastro-esophageal reflux disease without esophagitis; F41.9 Anxiety disorder, unspecified; F32.9 Major depressive disorder, single episode, unspecified; E11.9 Type 2 diabetes mellitus without complications; E03.9 Hypothyroidism, unspecified; F11.20 Opioid dependence, uncomplicated; Z87.39 Personal history of other diseases of the musculoskeletal system and connective tissue; Z88.0 Allergy status to penicillin; Z88.2 Allergy status to sulfonamides; Z88.8 Allergy status to other drugs, medicaments and biological substances; Z91.09 Other allergy status, other than to drugs and biological substances; Z79.899 Other long term (current) drug therapy; X50.9XXA Other and unspecified overexertion or strenuous movements or postures, initial encounter
CPT/HCPCS: 36415; 71101; 71250; 80048; 85025; 96374; 96375; 96376; 99284; A9270; J1170; J2270; J2405

== ENCOUNTER 2018-01-26 18:41 | Emergency (ER) | payer MEDICARE, MEDICAID ==
[2018-01-26 19:26] VITALS: BP 118/70
== END 2018-01-26 19:28 ==
LOC: MW.ED 18:41
DX: Z53.21 Procedure and treatment not carried out due to patient leaving prior to being seen by health care provider (principal)

== ENCOUNTER 2018-02-26 09:12 | Emergency (ER) | payer MEDICARE, MEDICAID ==
[2018-02-26 09:29] VITALS: BP 126/81
--- NOTE | 2018-02-26 10:39 | EDM.PDOC ---
ED HPI GENERAL MEDICAL PROBLEM - General Chief Complaint: Lower Extremity Injury/Pain Stated Complaint: RT LEG AND BACK HURTS Time Seen by Provider: 02/26/18 10:08 Source of Information: Reports: Patient History Limitations: Reports: No Limitations - History of Present Illness INITIAL COMMENTS - FREE TEXT/NARRATIVE: HISTORY AND PHYSICAL: History of present illness: Patient is a 42-year-old female who presents to the emergency room with complaints of thoracic back pain and right foot pain since Friday. On Friday she states she was standing and her knees buckled from underneath her which caused her to fall to the ground. She did not hit her head or have any loss of consciousness. She was able to get up, follow up in the clinic that afternoon, and proceed with her day. She states that she was seen at the clinic and evaluated, without x-ray, and encouraged to continue to monitor her symptoms. Since initial evaluation she has noticed slight redness and increased pain to her right anterior foot. This pain is increased with weightbearing or standing for long periods of time. She does have chronic back pain due to scoliosis and surgeries, which include fusion and lumbar rods. He currently uses a fentanyl patch and hydromorphone for pain management. She states she does not have a pain contract as she does not see a pain specialist. She states that both of these medications are not managing her pain at this point. Review of systems: As per history of present illness and below otherwise all systems reviewed and negative. Past medical history: As per history of present illness and as reviewed below otherwise noncontributory. Surgical history: As per history of present illness and as reviewed below otherwise noncontributory. Social history: No reported history of drug or alcohol abuse. Family history: As per history of present illness and as reviewed below otherwise noncontributory. Physical exam: General: Well-developed and well-nourished 42-year-old female. Alert and oriented. Appears mildly drowsy. Nontoxic appearing and in no acute distress. HEENT: Atraumatic, normocephalic, pupils equal and reactive bilaterally, negative for conjunctival pallor or scleral icterus, mucous membranes dry, throat clear, neck supple, nontender, trachea midline. No drooling or trismus noted. No meningeal signs Lungs: Clear to auscultation, breath sounds equal bilaterally, chest nontender. Heart: S1S2, regular rate and rhythm without overt murmur Abdomen: Soft, nondistended, obese, nontender. Negative for masses. Negative for costovertebral tenderness. Pelvis: Stable nontender. Genitourinary: Deferred. Rectal: Deferred. Skin: Patient has dark spots to her bilateral lower extremities (normal patient variance). Mild erythema noted to the anterior right foot, strong pedal pulse, capillary refill less than 3 seconds. CMS intact. Intact, warm, dry. No lesions or rashes noted. Extremities: Atraumatic (since initial evaluation), moves all extremities per self without difficulty or deficits, negative for cords or calf pain. Neurovascular unremarkable. C-spine/back have no crepatis, step-offs or obvious deformities. Denies any numbness or tingling to her distal extremities. Denies any urinary or fecal incontinence since fall. Neuro: Awake, alert, oriented. Cranial nerves II through XII unremarkable. Cerebellum unremarkable. Motor and sensory unremarkable throughout. Exam nonfocal. Notes: Patient states she currently has Fentanyl Patch on and took her Hydromorphone this morning; appears calm and relaxed. Although she states that she is in 10 out of 10 pain. It's that she does not have a pain contract as Dr. Mitchell will not see her due to the amount of medications she is currently on. Stating an x-ray of her right foot and although she has no tenderness with palpation, she would like an x-ray of her thoracic spine. X-ray of the thoracic spine shows extensive interval surgery from previous. Changes noted since previous imaging. Xray of the foot shows no bone abnormalities. This is shared with the patient. I encouraged her to follow up with her primary care provider for her chronic pain management. We'll give her an Ash wrap and crutches for her foot discomfort. Patient is concerned about her pain management , although I am uncomfortable prescribing any additional medications as she does take multiple narcotics at this time. Supportive care measures were reviewed and discussed. She voices understanding and is agreeable to plan of care. Diagnostics: X-ray right foot, thoracic spine Therapeutics: Ash wrap, Crutches Impression: Right foot pain Plan: 1. Please use the crutches and acewrap as directed. Rest, ice, elevate the affected extremity. 2. Follow-up with your primary caregiver for further evaluation of your chronic back pain. Due to the multiple medications you are currently taking you need a primary care provider or mirror painter to adjust these. 3. Return to the ED as needed and as discussed. Definitive disposition and diagnosis as appropriate pending reevaluation and review of above. Duration: Day(s): Location: Reports: Back, Lower Extremity, Right Right Feet Pain Score (Numeric/FACES): 8 Middle Back Pain Score (Numeric/FACES): 6 - Related Data Allergies Allergy/AdvReac Type Severity Reaction Status Date / Time adhesive tape Allergy Rash Verified 02/26/18 09:29 bupropion HCl Allergy Hives Verified 02/26/18 09:29 [From Wellbutrin] metoclopramide HCl Allergy Hives Verified 02/26/18 09:29 [From Reglan] Penicillins Allergy Hives Verified 02/26/18 09:29 Sulfa (Sulfonamide Allergy Hives Verified 02/26/18 09:29 Antibiotics) Home Meds: Home Meds ARIPiprazole [Abilify Discmelt] 15 mg PO DAILY 12/11/17 [History] Baclofen 20 mg PO TID 12/11/17 [History] Celecoxib 200 mg PO BID 12/11/17 [History] DULoxetine [Cymbalta] 60 mg PO DAILY 12/11/17 [History] Esomeprazole [NexIUM] 40 mg PO DAILY 12/11/17 [History] Gabapentin [Gralise] 1,200 mg PO TID 12/11/17 [History] Levothyroxine Sodium [Synthroid] 137 mcg PO DAILY 12/11/17 [History] Lurasidone [Latuda] 40 mg PO DAILY 12/11/17 [History] Methocarbamol 1,500 mg PO Q6HR PRN 12/11/17 [History] Minocycline [Minocin] 100 mg PO BID 12/11/17 [History] OLANZapine [Olanzapine] 2.5 mg PO BID 12/11/17 [History] Ranitidine HCl [Ranitidine] 300 mg PO BEDTIME 12/11/17 [History] Zolpidem Tartrate [Edluar] 10 mg PO BEDTIME 12/11/17 [History] fentaNYL [Duragesic] 50 mcg TD Q72H 01/13/18 [History] HYDROmorphone [Dilaudid] 4 mg PO QID PRN #8 tablet 01/14/18 [Rx] Past Medical History HEENT History: Reports: Allergic Rhinitis, Impaired Vision Cardiovascular History: Reports: Hypertension Respiratory History: Reports: Asthma Gastrointestinal History: Reports: GERD Genitourinary History: Reports: UTI, Recurrent Other Genitourinary History: kidney mass, dysuria 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: Reports: , 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) Other OB/BYN History: HRT Musculoskeletal History: Reports: Osteoarthritis, Osteoporosis Other Musculoskeletal History: Spinal stenosis, degenerative bone disease Neurological History: Reports: Migraines Psychiatric History: Reports: Addiction, Aggressive/Hostile Behaviors, Anxiety, Bipolar, Depression, 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) Other Psychiatric History: insomnia, bipolar Endocrine/Metabolic History: Reports: Diabetes, Type II, Hypothyroidism Hematologic History: Reports: Anemia, Iron Deficiency Immunologic History: Reports: None Oncologic (Cancer) History: Reports: None Dermatologic History: Reports: 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) Other Dermatologic History: neel infections - Infectious Disease History Infectious Disease History: Reports: Chicken Pox, MRSA Other Infectious Disease History: MSSA - Past Surgical History HEENT Surgical History: Reports: None Respiratory Surgical History: Reports: None GI Surgical History: Reports: Bariatric Procedure, Cholecystectomy, Hernia, Abdominal, Hernia, Inguinal Female Surgical History: Reports: Hysterectomy, Salpingo-Oophorectomy Neurological Surgical History: Reports: Thoracic Spine Musculoskeletal Surgical History: Reports: Hip Replacement, 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) Other Musculoskeletal Surgeries/Procedures:: back surgery Social & Family History - Family History Family Medical History: Noncontributory HEENT: Reports: None Cardiac: Reports: None Respiratory: Reports: None GI: Reports: None : Reports: None OBGYN: Reports: None Musculoskeletal: Reports: None Neurological: Reports: None Psychiatric: Reports: Anxiety, Depression Endocrine/Metabolic: Reports: Diabetes, type II Hematologic: Reports: None Immunologic: Reports: None Oncologic: Reports: Bone, Pancreatic - Tobacco Use Smoking Status *Q: Current Every Day Smoker Years of Tobacco use: 35 Packs/Tins Daily: 1 - Caffeine Use Caffeine Use: Reports: Coffee, Soda - Recreational Drug Use Recreational Drug Use: No - Living Situation & Occupation Living situation: Reports: Occupation: Unemployed Review of Systems - Review of Systems Review Of Systems: ROS reveals no pertinent complaints other than HPI. ED EXAM, GENERAL - Physical Exam Exam: See Below (See dictation) Course - Vital Signs Last Recorded V/S: Last Vital Signs Temp 97.5 F 02/26/18 09:23 Pulse 95 02/26/18 09:23 Resp 20 02/26/18 09:23 BP 126/81 02/26/18 09:23 Pulse Ox 96 02/26/18 09:23 Departure - Departure Time of Disposition: 11:45 Disposition: Home, Self-Care 01 Clinical Impression: Chronic back pain Qualifiers: Back pain location: thoracic back pain Back pain laterality: bilateral Qualified Code(s): M54.6 - Pain in thoracic spine; G89.29 - Other chronic pain Right foot injury Qualifiers: Encounter type: initial encounter Qualified Code(s): S99.921A - Unspecified injury of right foot, initial encounter - Discharge Information Instructions: Chronic Back Pain, Ankle Sprain, [id number] Referrals: PCP,None [Primary Care Provider] - Forms: ED Department Discharge Additional Instructions: The following information is given to patients seen in the emergency department who are being discharged to home. This information is to outline your options for follow-up care. We provide all patients seen in our emergency department with a follow-up referral. The need for follow-up, as well as the timing and circumstances, are variable depending upon the specifics of your emergency department visit. If you don't have a primary care physician on staff, we will provide you with a referral. We always advise you to contact your personal physician following an emergency department visit to inform them of the circumstance of the visit and for follow-up with them and/or the need for any referrals to a consulting specialist. The emergency department will also refer you to a specialist when appropriate. This referral assures that you have the opportunity for follow-up care with a specialist. All of these measure are taken in an effort to provide you with optimal care, which includes your follow-up. Under all circumstances we always encourage you to contact your private physician who remains a resource for coordinating your care. When calling for follow-up care, please make the office aware that this follow-up is from your recent emergency room visit. If for any reason you are refused follow-up, please contact the [facility] Emergency Department at and asked to speak to the emergency department charge nurse. [facility] Primary [address] [address] 1. Please use the crutches and acewrap as directed. Rest, ice, elevate the affected extremity. 2. Follow-up with your primary caregiver for further evaluation of your chronic back pain. Due to the multiple medications you are currently taking you need a primary care provider or mirror painter to adjust these. 3. Return to the ED as needed and as discussed.
--- NOTE | 2018-02-26 10:43 | CR ---
Right foot Clinical history pain Comparison: None. Findings: There is a hallux valgus with rather prominent soft tissue developing suggesting early buni on. There is associated likely second hammertoe. No bony abnormalities. Impression: Hallux valgus with early bunion formation
--- NOTE | 2018-02-26 11:33 | CR ---
Thoracic spine 3 views Clinical history surgery Comparison: Prior scan from May 01, 2017. Findings: Since the prior study the lumbar and lower thoracic posterior pedicle screws and rods are a gain identified. Again noted is evidence of screw cage prosthesis at L1-L2 Since the prior examination there are new pedicle screws and rods throughout the thoracic spine ancho red to the previous lumbar thoracic rods with new screw cage at at T10-11. Position and appearance of the hardware appears anatomically satisfactory. Films are available for neurosurgical review Impression: Extensive interval surgery as described
[2018-02-26] MEDS ORDERED: Ketorolac 60 MG/2 ML SDV IM ONE (11:49)
== END 2018-02-26 12:34 | disposition home or self-care (01) ==
LOC: MW.ED 09:12
DX: S99.921A Unspecified injury of right foot, initial encounter (principal); M54.6 Pain in thoracic spine; G89.29 Other chronic pain; I10 Essential (primary) hypertension; E11.9 Type 2 diabetes mellitus without complications; F17.210 Nicotine dependence, cigarettes, uncomplicated; Z91.048 Other nonmedicinal substance allergy status; Z88.0 Allergy status to penicillin; Z88.2 Allergy status to sulfonamides; Z79.899 Other long term (current) drug therapy; X58.XXXA Exposure to other specified factors, initial encounter
CPT/HCPCS: 72072; 73620; 96372; 99283; J1885

== ENCOUNTER 2018-03-20 14:18 | Emergency (ER) | payer MEDICARE, MEDICAID ==
--- NOTE | 2018-03-20 14:37 | EDM.PDOC ---
ED HPI GENERAL MEDICAL PROBLEM - General Chief Complaint: Lower Extremity Injury/Pain Stated Complaint: PAIN IN RT HIP DOWN LEG Time Seen by Provider: 03/20/18 14:33 Source of Information: Reports: Patient, Family History Limitations: Reports: No Limitations - History of Present Illness INITIAL COMMENTS - FREE TEXT/NARRATIVE: HISTORY AND PHYSICAL: [42-year-old female presenting with right leg hip pain History of Present Illness: []She complains of pain from her right hip to her mid thigh. She did take a pain pill at home prior to coming here pain has been reduced to a 6/10. She is complaining of edema to the lower leg and foot. Patient states she has a parathyroid disorder that causes the reduction of calcium absorption. "I have very bit brittle bones " Review of Systems: As per history of present illness and below otherwise all systems reviewed and negative. Past medical history: As per history of present illness and as reviewed below otherwise noncontributory. Surgical history: As per history of present illness and as reviewed below otherwise noncontributory. Social history: No reported history of drug or alcohol abuse. Family history: As per history of present illness and as reviewed below otherwise noncontributory. Physical exam: Alert and oriented female answering questions appropriately in full sentences without any shortness of breath she is nontoxic in appearance she does look uncomfortable and is moving quite slowly. HEENT: Atraumatic, normocehpalic, pupils reactive, negative for conjunctival pallor or scleral icterus, mucous membranes moist, throat clear, neck supple, nontender, trachea midline. Lungs: Clear to auscultation, breath sounds equal bilaterally, chest non tender. Heart: S1S2, regular, negative for clicks, rubs, or JVD. Abdomen: Soft, nondistended, nontender. Negative for masses or hepatossplenmegaly. Negative for costovertebral tenderness. Pelvis: Stable nontender. Genitourinary: Deferred. Rectal: Deferred Extremities: Atraumatic, negative for cords or calf pain. Mild 1+ edema to foot skin is warm and dry. Difficulty with palpation of the pulses Neurovascular unremarkable. Neuro: Awake, alert, oriented. Cranial nerves II through XII unremarkable. Cerebellum unremarkable. Motor and sensory unremarkable throughout. Exam nonfocal. Discussed with this patient that she has a DVT and that she needs to stop her Celebrex. We'll give her Zaroxolyn Diagnostics: [] Therapeutics: [] Impression: [] Plan: [] Definitive disposition and diagnosis as appropriate pending reevaluation and review of above. Onset: Sudden Duration: Day(s): (5) Location: Reports: Lower Extremity, Right Quality: Reports: Ache Severity: Moderate Improves with: Reports: None Worsens with: Reports: None Associated Symptoms: Reports: No Other Symptoms right hip Pain Score (Numeric/FACES): 6 - Related Data Allergies Allergy/AdvReac Type Severity Reaction Status Date / Time adhesive tape Allergy Rash Verified 03/20/18 14:26 bupropion HCl Allergy Hives Verified 03/20/18 14:26 [From Wellbutrin] metoclopramide HCl Allergy Hives Verified 03/20/18 14:26 [From Reglan] Penicillins Allergy Hives Verified 03/20/18 14:26 Sulfa (Sulfonamide Allergy Hives Verified 03/20/18 14:26 Antibiotics) Home Meds: Home Meds ARIPiprazole [Abilify Discmelt] 15 mg PO DAILY 12/11/17 [History] Baclofen 20 mg PO TID 12/11/17 [History] Celecoxib 200 mg PO BID 12/11/17 [History] DULoxetine [Cymbalta] 60 mg PO DAILY 12/11/17 [History] Esomeprazole [NexIUM] 40 mg PO DAILY 12/11/17 [History] Gabapentin [Gralise] 1,200 mg PO TID 12/11/17 [History] Levothyroxine Sodium [Synthroid] 137 mcg PO DAILY 12/11/17 [History] Lurasidone [Latuda] 40 mg PO DAILY 12/11/17 [History] Methocarbamol 1,500 mg PO Q6HR PRN 12/11/17 [History] Minocycline [Minocin] 100 mg PO BID 12/11/17 [History] OLANZapine [Olanzapine] 2.5 mg PO BID 12/11/17 [History] Ranitidine HCl [Ranitidine] 300 mg PO BEDTIME 12/11/17 [History] Zolpidem Tartrate [Edluar] 10 mg PO BEDTIME 12/11/17 [History] fentaNYL [Duragesic] 50 mcg TD Q72H 01/13/18 [History] HYDROmorphone [Dilaudid] 4 mg PO QID PRN #8 tablet 01/14/18 [Rx] Rivaroxaban [Xarelto] 15 mg PO DAILY #21 tablet 03/20/18 [Rx] Past Medical History HEENT History: Reports: Allergic Rhinitis, Impaired Vision Cardiovascular History: Reports: Hypertension Respiratory History: Reports: Asthma Gastrointestinal History: Reports: GERD Genitourinary History: Reports: UTI, Recurrent Other Genitourinary History: kidney mass, dysuria 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 History: Reports: , 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) Other OB/BYN History: HRT Musculoskeletal History: Reports: Osteoarthritis, Osteoporosis Other Musculoskeletal History: Spinal stenosis, degenerative bone disease Neurological History: Reports: Migraines Psychiatric History: Reports: Addiction, Aggressive/Hostile Behaviors, Anxiety, Bipolar, Depression, 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) Other Psychiatric History: insomnia, bipolar Endocrine/Metabolic History: Reports: Diabetes, Type II, Hypothyroidism Hematologic History: Reports: Anemia, Iron Deficiency Immunologic History: Reports: None Oncologic (Cancer) History: Reports: None Dermatologic History: Reports: 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) Other Dermatologic History: neel infections - Infectious Disease History Infectious Disease History: Reports: Chicken Pox, MRSA Other Infectious Disease History: MSSA - Past Surgical History HEENT Surgical History: Reports: None Cardiovascular Surgical History: Reports: None Respiratory Surgical History: Reports: None GI Surgical History: Reports: Bariatric Procedure, Cholecystectomy, Hernia, Abdominal, Hernia, Inguinal Female Surgical History: Reports: Hysterectomy, Salpingo-Oophorectomy Neurological Surgical History: Reports: Thoracic Spine Musculoskeletal Surgical History: Reports: Hip Replacement, 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) Other Musculoskeletal Surgeries/Procedures:: back surgery Social & Family History - Family History Family Medical History: Noncontributory HEENT: Reports: None Cardiac: Reports: None Respiratory: Reports: None GI: Reports: None : Reports: None OBGYN: Reports: None Musculoskeletal: Reports: None Neurological: Reports: None Psychiatric: Reports: Anxiety, Depression Endocrine/Metabolic: Reports: Diabetes, type II Hematologic: Reports: None Immunologic: Reports: None Oncologic: Reports: Bone, Pancreatic - Tobacco Use Smoking Status *Q: Current Every Day Smoker Years of Tobacco use: 35 Packs/Tins Daily: 0.5 - Caffeine Use Caffeine Use: Reports: None - Recreational Drug Use Recreational Drug Use: No - Living Situation & Occupation Living situation: Reports: Occupation: Unemployed Review of Systems - Review of Systems Review Of Systems: ROS reveals no pertinent complaints other than HPI. ED EXAM, GENERAL - Physical Exam Exam: See Below (See dictation) Course - Vital Signs Last Recorded V/S: Last Vital Signs Temp 36.3 C 03/20/18 14:26 Pulse 110 H 03/20/18 14:26 Resp 18 03/20/18 14:26 BP 151/86 H 03/20/18 14:26 Pulse Ox 95 03/20/18 14:26 - Orders/Labs/Meds Orders: Active Orders 24 hr Category Date Time Status Rivaroxaban [Xarelto] Med 03/20/18 17:30 Ordered 15 mg PO WITHDINNER Medication Orders Rivaroxaban (Xarelto) 15 mg PO WITHDINNER PEDRO Meds: Medications Generic Name Dose Route Start Last Admin Trade Name Freq PRN Reason Stop Dose Admin Rivaroxaban 15 mg 03/20/18 17:30 Xarelto PO WITHDINNER PEDRO Discontinued Medications Generic Name Dose Route Start Last Admin Trade Name Freq PRN Reason Stop Dose Admin Rivaroxaban 10 mg 03/20/18 15:35 03/20/18 15:40 Xarelto PO 03/20/18 15:36 Not Given ONETIME ONE Departure - Departure Time of Disposition: 15:43 Disposition: Home, Self-Care 01 Condition: Good Clinical Impression: DVT (deep venous thrombosis) Qualifiers: DVT location: lower extremity Chronicity: acute Laterality: right - Discharge Information Prescriptions: Rivaroxaban [Xarelto] 15 mg PO DAILY #21 tablet Instructions: Deep Vein Thrombosis Referrals: PCP,None [Primary Care Provider] - Forms: ED Department Discharge Additional Instructions: The following information is given to patients seen in the emergency department who are being discharged to home. This information is to outline your options for follow-up care. We provide all patients seen in our emergency department with a follow-up referral. The need for follow-up, as well as the timing and circumstances, are variable depending upon the specifics of your emergency department visit. If you don't have a primary care physician on staff, we will provide you with a referral. We always advise you to contact your personal physician following an emergency department visit to inform them of the circumstance of the visit and for follow-up with them and/or the need for any referrals to a consulting specialist. The emergency department will also refer you to a specialist when appropriate. This referral assures that you have the opportunity for followup care with a specialist. All of these measure are taken in an effort to provide you with optimal care, which includes your followup. Under all circumstances we always encourage you to contact your private physician who remains a resource for coordinating your care. When calling for followup care, please make the office aware that this follow-up is from your recent emergency room visit. If for any reason you are refused follow-up, please contact the [facility] emergency department at and asked to speak to the emergency department charge nurse. You've been found to have a DVT No NSAIDs to be taken while you're on Xarelto. Keep your appointment with Dr. Smith next week reevaluation - My Orders Last 24 Hours: My Active Orders 03/20/18 17:30 Rivaroxaban [Xarelto] 15 mg PO WITHDINNER - Assessment/Plan Last 24 Hours: My Active Orders 03/20/18 17:30 Rivaroxaban [Xarelto] 15 mg PO WITHDINNER
--- NOTE | 2018-03-20 15:17 | US ---
ULTRASOUND EXAMINATION OF the right lower extremity WITH DOPPLER HISTORY: Pain FINDINGS: Examination of the right leg was performed from the groin to the calf region. There is an incompress ible filling defect noted within the popliteal vein thinning likely into the upper calf. Compressibil ity is noted within the common femoral, saphenous, and proximal femoral veins. IMPRESSION: 1. Incompressible filling defect noted within the popliteal vein suggesting a deep vein thrombosis.
--- NOTE | 2018-03-20 15:23 | CR ---
EXAMINATION: Right hip HISTORY: Pain COMPARISON: CT dated 05/16/2017 TECHNIQUE: AP and lateral views FINDINGS: Right total hip hardware is demonstrated in stable position and alignment. No fracture or a cute osseous abnormality. Bone mineralization appears normal to mildly osteopenic. Partially visualiz ed SI hardware noted. IMPRESSION: No acute findings demonstrated.
[2018-03-20] MEDS ORDERED: Rivaroxaban 10 MG Tab PO ONE (15:35)
[2018-03-20 16:04] VITALS: BP 130/90
[2018-03-20] MEDS ORDERED: Rivaroxaban 15 MG Tab PO SCH (17:30)
== END 2018-03-20 16:10 | disposition home or self-care (01) ==
LOC: MW.ED 14:18
DX: I82.401 Acute embolism and thrombosis of unspecified deep veins of right lower extremity (principal); I10 Essential (primary) hypertension; E11.9 Type 2 diabetes mellitus without complications; F17.210 Nicotine dependence, cigarettes, uncomplicated; Z88.2 Allergy status to sulfonamides; Z88.0 Allergy status to penicillin; Z88.8 Allergy status to other drugs, medicaments and biological substances; Z79.899 Other long term (current) drug therapy
CPT/HCPCS: 73502; 93971; 99283; A9270

== ENCOUNTER 2018-03-21 17:45 | Emergency (ER) | payer MEDICARE, MEDICAID ==
[2018-03-21] MEDS ORDERED: Sodium Chloride 0.9% 2.5 ML Syringe FLUSH PRN (18:36)
[2018-03-21] MEDS ORDERED: Sodium Chloride 0.9% 10 ML Syringe FLUSH PRN (18:36)
--- NOTE | 2018-03-21 19:23 | EDM.PDOC ---
ED HPI GENERAL MEDICAL PROBLEM - General Chief Complaint: Upper Extremity Injury/Pain Stated Complaint: SHOULDER PAIN TO ELBOW Time Seen by Provider: 03/21/18 18:05 Source of Information: Reports: Patient History Limitations: Reports: No Limitations - History of Present Illness INITIAL COMMENTS - FREE TEXT/NARRATIVE: HISTORY AND PHYSICAL: History of present illness: [Lilia is a 42-year-old female here for left arm pain x 2 months. She states the pain is worsening today. Pain starts in her neck and radiates down to her elbow. She denies any injury. She does have fairly significant kyphosis and she is on pain medications for chronic pain pain. She denies any numbness or tingling, states it is not nerve pain as she knows what this feels like. She denies any chest pain/pressure, SOB, diaphoresis, jaw pain, nausea, vomiting, abdominal pain. She was seen in the ED yesterday for right thigh pain with LE edema and diagnosed with DVT. She was started on Xarelto. Patient reports that she is concerned about her heart given the left arm pain. ] Review of systems: As per history of present illness and below otherwise all systems reviewed and negative. Past medical history: As per history of present illness and as reviewed below otherwise noncontributory. Surgical history: As per history of present illness and as reviewed below otherwise noncontributory. Social history: No reported history of drug or alcohol abuse. Family history: As per history of present illness and as reviewed below otherwise noncontributory. Physical exam: HEENT: Atraumatic, normocephalic, pupils reactive, negative for conjunctival pallor or scleral icterus, mucous membranes moist, throat clear, neck supple, nontender, trachea midline. Lungs: Clear to auscultation, breath sounds equal bilaterally, chest nontender. Heart: S1S2, regular, negative for clicks, rubs, or JVD. Abdomen: Soft, nondistended, nontender. Negative for masses or hepatosplenomegaly. Negative for costovertebral tenderness. Pelvis: Stable nontender. Genitourinary: Deferred. Rectal: Deferred. Extremities: Tenderness to palpation of left cervical paraspinals. Atraumatic, negative for cords or calf pain. Neurovascular unremarkable. Neuro: Awake, alert, oriented. Cranial nerves II through XII unremarkable. Cerebellum unremarkable. Motor and sensory unremarkable throughout. Exam nonfocal. Notes: EKG shows NSR, no ST-T wave changes. Diagnostics: [EKG CBC, CMP, Troponin] Therapeutics: [] Impression: [Left arm pain] Plan: [EKG NSR without ST-T wave changes and normal Troponin. Discussed this with patient and offered admission to observation to r/o ACS, she declines at this time. Advised to follow up with her PCP, discussed with her that she may need imaging for possible cervical radiculoapthy. Return to ED as needed as discussed. ] Definitive disposition and diagnosis as appropriate pending reevaluation and review of above. Left Upper Arm Pain Score (Numeric/FACES): 3 - Related Data Allergies Allergy/AdvReac Type Severity Reaction Status Date / Time adhesive tape Allergy Rash Verified 03/21/18 18:17 bupropion HCl Allergy Hives Verified 03/21/18 18:17 [From Wellbutrin] metoclopramide HCl Allergy Hives Verified 03/21/18 18:17 [From Reglan] Penicillins Allergy Hives Verified 03/21/18 18:17 Sulfa (Sulfonamide Allergy Hives Verified 03/21/18 18:17 Antibiotics) Home Meds: Home Meds ARIPiprazole [Abilify Discmelt] 15 mg PO DAILY 12/11/17 [History] Baclofen 20 mg PO TID 12/11/17 [History] Celecoxib 200 mg PO BID 12/11/17 [History] DULoxetine [Cymbalta] 60 mg PO DAILY 12/11/17 [History] Esomeprazole [NexIUM] 40 mg PO DAILY 12/11/17 [History] Gabapentin [Gralise] 1,200 mg PO TID 12/11/17 [History] Levothyroxine Sodium [Synthroid] 137 mcg PO DAILY 12/11/17 [History] Lurasidone [Latuda] 40 mg PO DAILY 12/11/17 [History] Methocarbamol 1,500 mg PO Q6HR PRN 12/11/17 [History] Minocycline [Minocin] 100 mg PO BID 12/11/17 [History] OLANZapine [Olanzapine] 2.5 mg PO BID 12/11/17 [History] Ranitidine HCl [Ranitidine] 300 mg PO BEDTIME 12/11/17 [History] Zolpidem Tartrate [Edluar] 10 mg PO BEDTIME 12/11/17 [History] fentaNYL [Duragesic] 50 mcg TD Q72H 01/13/18 [History] HYDROmorphone [Dilaudid] 4 mg PO QID PRN #8 tablet 01/14/18 [Rx] Rivaroxaban [Xarelto] 15 mg PO DAILY #21 tablet 03/20/18 [Rx] Past Medical History HEENT History: Reports: Allergic Rhinitis, Impaired Vision Cardiovascular History: Reports: Hypertension Respiratory History: Reports: Asthma Gastrointestinal History: Reports: GERD Genitourinary History: Reports: UTI, Recurrent Other Genitourinary History: kidney mass, dysuria 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: 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: , 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) Other OB/BYN History: HRT Musculoskeletal History: Reports: Osteoarthritis, Osteoporosis Other Musculoskeletal History: Spinal stenosis, degenerative bone disease Neurological History: Reports: Migraines Psychiatric History: Reports: Addiction, Aggressive/Hostile Behaviors, Anxiety, Bipolar, Depression, 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) Other Psychiatric History: insomnia, bipolar Endocrine/Metabolic History: Reports: Diabetes, Type II, Hypothyroidism Hematologic History: Reports: Anemia, Iron Deficiency Immunologic History: Reports: None Oncologic (Cancer) History: Reports: None Dermatologic History: Reports: 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) Other Dermatologic History: neel infections - Infectious Disease History Infectious Disease History: Reports: MRSA Other Infectious Disease History: MSSA - Past Surgical History HEENT Surgical History: Reports: None Cardiovascular Surgical History: Reports: None Respiratory Surgical History: Reports: None GI Surgical History: Reports: Bariatric Procedure, Cholecystectomy, Hernia, Abdominal, Hernia, Inguinal Female Surgical History: Reports: Hysterectomy, Salpingo-Oophorectomy Neurological Surgical History: Reports: Thoracic Spine Musculoskeletal Surgical History: Reports: Hip Replacement, 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) Other Musculoskeletal Surgeries/Procedures:: back surgery Social & Family History - Family History Family Medical History: Noncontributory HEENT: Reports: None Cardiac: Reports: None Respiratory: Reports: None GI: Reports: None : Reports: None OBGYN: Reports: None Musculoskeletal: Reports: None Neurological: Reports: None Psychiatric: Reports: Anxiety, Depression Endocrine/Metabolic: Reports: Diabetes, type II Hematologic: Reports: None Immunologic: Reports: None Oncologic: Reports: Bone, Pancreatic - Tobacco Use Smoking Status *Q: Current Every Day Smoker Years of Tobacco use: 35 Packs/Tins Daily: 0.5 - Caffeine Use Caffeine Use: Reports: None - Recreational Drug Use Recreational Drug Use: No - Living Situation & Occupation Living situation: Reports: Occupation: Unemployed Review of Systems - Review of Systems Review Of Systems: ROS reveals no pertinent complaints other than HPI. ED EXAM, GENERAL - Physical Exam Exam: See Below (see dictation) Course - Vital Signs Last Recorded V/S: Last Vital Signs Temp 36.6 C 03/21/18 18:18 Pulse 80 03/21/18 18:18 Resp 18 03/21/18 18:18 BP 108/64 03/21/18 18:18 Pulse Ox 94 L 03/21/18 18:18 - Orders/Labs/Meds Orders: Active Orders 24 hr Category Date Time Status EKG Documentation Completion [RC] STAT Care 03/21/18 18:36 Active INR,PT,PROTHROMBIN TIME [COAG] Stat Lab 03/21/18 20:14 Received Sodium Chloride 0.9% [Saline Flush] Med 03/21/18 18:36 Active 10 ml FLUSH ASDIRECTED PRN Sodium Chloride 0.9% [Saline Flush] Med 03/21/18 18:36 Active 2.5 ml FLUSH ASDIRECTED PRN Saline Lock Insert [OM.PC] Stat Oth 03/21/18 18:37 Ordered Medication Orders Sodium Chloride (Saline Flush) 10 ml FLUSH ASDIRECTED PRN PRN Reason: Keep Vein Open Sodium Chloride (Saline Flush) 2.5 ml FLUSH ASDIRECTED PRN PRN Reason: Keep Vein Open Labs: Laboratory Tests 03/21/18 03/21/18 Range/Units 19:34 19:34 WBC 5.99 (4.0-11.0) K/uL RBC 4.17 L (4.30-5.90) M/uL Hgb 12.5 (12.0-16.0) g/dL Hct 38.3 (36.0-46.0) % MCV 91.8 (80.0-98.0) fL MCH 30.0 (27.0-32.0) pg MCHC 32.6 (31.0-37.0) g/dL RDW Std Deviation 50.1 (28.0-62.0) fl RDW Coeff of Joslyn 15 (11.0-15.0) % Plt Count 201 (150-400) K/uL MPV 9.30 (7.40-12.00) fL Neut % (Auto) 64.3 (48.0-80.0) % Lymph % (Auto) 24.5 (16.0-40.0) % [place] % (Auto) 7.8 (0.0-15.0) % Eos % (Auto) 3.2 (0.0-7.0) % Baso % (Auto) 0.2 (0.0-1.5) % Neut # (Auto) 3.9 (1.4-5.7) K/uL Lymph # (Auto) 1.5 (0.6-2.4) K/uL [place] # (Auto) 0.5 (0.0-0.8) K/uL Eos # (Auto) 0.2 (0.0-0.7) K/uL Baso # (Auto) 0.0 (0.0-0.1) K/uL Nucleated RBC % 0.0 /100WBC Nucleated RBCs # 0 K/uL Sodium 140 (136-145) mmol/L Potassium 3.6 (3.5-5.1) mmol/L Chloride 103 (98-107) mmol/L Carbon Dioxide 28.2 (21.0-32.0) mmol/L BUN 19 H (7.0-18.0) mg/dL Creatinine 0.8 (0.6-1.0) mg/dL Est Cr Clr Drug Dosing 79.11 mL/min Estimated GFR (MDRD) > 60.0 ml/min Glucose 86 (74-106) mg/dL Calcium 8.6 (8.5-10.1) mg/dL Total Bilirubin 0.3 (0.2-1.0) mg/dL AST 25 (15-37) IU/L ALT 22 (14-63) IU/L Alkaline Phosphatase 146 H (46-116) U/L Troponin I < 0.050 (0.000-0.056) ng/mL Total Protein 6.6 (6.4-8.2) g/dL Albumin 2.7 L (3.4-5.0) g/dL Globulin 3.9 H (2.0-3.5) g/dL Albumin/Globulin Ratio 0.7 L (1.3-2.8) Meds: Medications Generic Name Dose Route Start Last Admin Trade Name Heide PRN Reason Stop Dose Admin Sodium Chloride 10 ml 03/21/18 18:36 Saline Flush FLUSH ASDIRECTED PRN Keep Vein Open Sodium Chloride 2.5 ml 03/21/18 18:36 Saline Flush FLUSH ASDIRECTED PRN Keep Vein Open Departure - Departure Time of Disposition: 20:31 Disposition: Home, Self-Care 01 Condition: Good Clinical Impression: Left arm pain - Discharge Information Referrals: PCP,None [Primary Care Provider] - Forms: ED Department Discharge Additional Instructions: The following information is given to patients seen in the emergency department who are being discharged to home. This information is to outline your options for follow-up care. We provide all patients seen in our emergency department with a follow-up referral. The need for follow-up, as well as the timing and circumstances, are variable depending upon the specifics of your emergency department visit. If you don't have a primary care physician on staff, we will provide you with a referral. We always advise you to contact your personal physician following an emergency department visit to inform them of the circumstance of the visit and for follow-up with them and/or the need for any referrals to a consulting specialist. The emergency department will also refer you to a specialist when appropriate. This referral assures that you have the opportunity for follow-up care with a specialist. All of these measure are taken in an effort to provide you with optimal care, which includes your follow-up. Under all circumstances we always encourage you to contact your private physician who remains a resource for coordinating your care. When calling for follow-up care, please make the office aware that this follow-up is from your recent emergency room visit. If for any reason you are refused follow-up, please contact the [facility] Emergency Department at and asked to speak to the emergency department charge nurse. [facility] [address] [place] [id number] #[phone] up with your PCP #2 Return to ED as needed as discussed - My Orders Last 24 Hours: My Active Orders 03/21/18 18:36 EKG Documentation Completion [RC] STAT Sodium Chloride 0.9% [Saline Flush] 10 ml FLUSH ASDIRECTED PRN Sodium Chloride 0.9% [Saline Flush] 2.5 ml FLUSH ASDIRECTED PRN 03/21/18 18:37 Saline Lock Insert [OM.PC] Stat 03/21/18 20:14 INR,PT,PROTHROMBIN TIME [COAG] Stat - Assessment/Plan Last 24 Hours: My Active Orders 03/21/18 18:36 EKG Documentation Completion [RC] STAT Sodium Chloride 0.9% [Saline Flush] 10 ml FLUSH ASDIRECTED PRN Sodium Chloride 0.9% [Saline Flush] 2.5 ml FLUSH ASDIRECTED PRN 03/21/18 18:37 Saline Lock Insert [OM.PC] Stat 03/21/18 20:14 INR,PT,PROTHROMBIN TIME [COAG] Stat
[2018-03-21 20:18] LABS: CHLORIDE,CL 103 mmol/L (98-107); SODIUM,NA 140 mmol/L (136-145)
[2018-03-21 20:45] VITALS: BP 118/81
== END 2018-03-21 20:48 | disposition home or self-care (01) ==
LOC: MW.ED 17:45
DX: M79.602 Pain in left arm (principal); I10 Essential (primary) hypertension; E11.9 Type 2 diabetes mellitus without complications; Z88.8 Allergy status to other drugs, medicaments and biological substances; Z91.018 Allergy to other foods
CPT/HCPCS: 36415; 80053; 84484; 85025; 85610; 93005; 99283; 99284-25

== ENCOUNTER 2018-10-20 10:19 | Emergency (ER) | payer MEDICARE, MEDICAID ==
--- NOTE | 2018-10-20 11:41 | EDM.PDOC ---
ED HPI GENERAL MEDICAL PROBLEM - General Chief Complaint: Genitourinary Problem Stated Complaint: UTI Time Seen by Provider: 10/20/18 11:40 Source of Information: Reports: Patient - History of Present Illness INITIAL COMMENTS - FREE TEXT/NARRATIVE: HISTORY AND PHYSICAL: History of present illness: Patient is in here for change of Hernandez catheter is been in for 1 month and is leaking is unable to get into urology or primary care O fever nausea vomiting chills sweats Review of systems: As per history of present illness and below otherwise all systems reviewed and negative. Past medical history: As per history of present illness and as reviewed below otherwise noncontributory. Surgical history: As per history of present illness and as reviewed below otherwise noncontributory. Social history: No reported history of drug or alcohol abuse. Family history: As per history of present illness and as reviewed below otherwise noncontributory. Physical exam: HEENT: Atraumatic, normocephalic, pupils reactive, negative for conjunctival pallor or scleral icterus, mucous membranes moist, throat clear, neck supple, nontender, trachea midline. Lungs: Clear to auscultation, breath sounds equal bilaterally, chest nontender. Heart: S1S2, regular, negative for clicks, rubs, or JVD. Abdomen: Soft, nondistended, nontender. Negative for masses or hepatosplenomegaly. Negative for costovertebral tenderness. Pelvis: Stable nontender. Genitourinary: Deferred. Rectal: Deferred. Extremities: Atraumatic, negative for cords or calf pain. Neurovascular unremarkable. Neuro: Awake, alert, oriented. Cranial nerves II through XII unremarkable. Cerebellum unremarkable. Motor and sensory unremarkable throughout. Exam nonfocal. Diagnostics: []UA with culture Therapeutics: []Hernandez catheter is changed Macrobid Impression: UTI []Medical screening exam Definitive disposition and diagnosis as appropriate pending reevaluation and review of above. - Related Data Allergies Allergy/AdvReac Type Severity Reaction Status Date / Time adhesive tape Allergy Rash Verified 10/20/18 10:37 bupropion HCl Allergy Hives Verified 10/20/18 10:37 [From Wellbutrin] metoclopramide HCl Allergy Hives Verified 10/20/18 10:37 [From Reglan] Penicillins Allergy Hives Verified 10/20/18 10:37 Sulfa (Sulfonamide Allergy Hives Verified 10/20/18 10:37 Antibiotics) Home Meds: Home Meds Gabapentin [Gralise] 1,200 mg PO TID 12/11/17 [History] Levothyroxine Sodium [Synthroid] 137 mcg PO DAILY 12/11/17 [History] Lurasidone [Latuda] 80 mg PO DAILY 12/11/17 [History] Minocycline [Minocin] 100 mg PO BID 12/11/17 [History] Zolpidem Tartrate [Edluar] 10 mg PO BEDTIME 12/11/17 [History] HYDROmorphone [Dilaudid] 4 mg PO QID PRN #8 tablet 01/14/18 [Rx] Phenazopyridine [Pyridium] 100 mg PO TID #6 tablet 09/01/18 [Rx] fentaNYL [Duragesic] 75 mcg TD Q72H 09/17/18 [History] tiZANidine HCl [Tizanidine HCl] 8 mg PO Q6HR 09/17/18 [History] Past Medical History HEENT History: Reports: Allergic Rhinitis, Impaired Vision Other HEENT History: wears reading glasses. 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 Neurological History: Reports: Migraines Psychiatric History: Reports: Anxiety, Bipolar, Depression, 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) Other Psychiatric History: insomnia, bipolar Endocrine/Metabolic History: Reports: Diabetes, Type II, Hypothyroidism Hematologic History: Reports: Anemia, Iron Deficiency Immunologic History: Reports: None Oncologic (Cancer) History: Reports: None Dermatologic History: Reports: 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) Other Dermatologic History: neel infections - Infectious Disease History Infectious Disease History: Reports: Chicken Pox Other Infectious Disease History: MSSA - Past Surgical History HEENT Surgical History: Reports: None Cardiovascular Surgical History: Reports: None Respiratory Surgical History: Reports: None GI Surgical History: Reports: Bariatric Procedure, Cholecystectomy, Hernia, Abdominal, Hernia, Inguinal Female Surgical History: Reports: Hysterectomy, Salpingo-Oophorectomy Endocrine Surgical History: Reports: None Neurological Surgical History: Reports: Thoracic Spine Musculoskeletal Surgical History: Reports: Hip Replacement, 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) Other Musculoskeletal Surgeries/Procedures:: back surgery Dermatological Surgical History: Reports: None Social & Family History - Family History Family Medical History: Noncontributory HEENT: Reports: None Cardiac: Reports: None Respiratory: Reports: None GI: Reports: None : Reports: None OBGYN: Reports: None Musculoskeletal: Reports: None Neurological: Reports: None Psychiatric: Reports: Anxiety, Depression Endocrine/Metabolic: Reports: Diabetes, type II Hematologic: Reports: None Immunologic: Reports: None Oncologic: Reports: Bone, Pancreatic - Tobacco Use Smoking Status *Q: Current Every Day Smoker Years of Tobacco use: 30 Packs/Tins Daily: 0.5 - Caffeine Use Caffeine Use: Reports: Coffee - Recreational Drug Use Recreational Drug Use: No - Living Situation & Occupation Living situation: Reports: Occupation: Unemployed ED ROS GENERAL - Review of Systems Review Of Systems: See Below ED EXAM, GENERAL - Physical Exam Exam: See Below Course - Vital Signs Last Recorded V/S: Last Vital Signs Temp 95.3 F L 10/20/18 10:38 Pulse 79 10/20/18 10:38 Resp 18 10/20/18 10:38 BP 109/74 10/20/18 10:38 Pulse Ox 99 10/20/18 10:38 - Orders/Labs/Meds Orders: Active Orders 24 hr Category Date Time Status Hernandez Catheter Insertion [Insert Urinary Catheter] [OM. Care 10/20/18 12:45 Ordered PC] Q24H Urinary Catheter Assessment [RC] ASDIRECTED Care 10/20/18 12:41 Active CULTURE URINE [RM] Stat Lab 10/20/18 12:37 Received Labs: Laboratory Tests 10/20/18 Range/Units 12:37 Urine Color YELLOW Urine Appearance SLT CLOUDY Urine pH 6.0 (5.0-8.0) Ur Specific Depue 1.010 (1.001-1.035) Urine Protein NEGATIVE (NEGATIVE) mg/dL Urine Glucose (UA) NEGATIVE (NEGATIVE) mg/dL Urine Ketones NEGATIVE (NEGATIVE) mg/dL Urine Occult Blood TRACE-INTACT H (NEGATIVE) Urine Nitrite NEGATIVE (NEGATIVE) Urine Bilirubin NEGATIVE (NEGATIVE) Urine Urobilinogen 0.2 (<2.0) EU/dL Ur Leukocyte Esterase MODERATE H (NEGATIVE) Urine RBC 0-1 (0-2/HPF) Urine WBC 2-3 (0-5/HPF) Ur Epithelial Cells OCCASIONAL (NONE-FEW) Urine Bacteria FEW (NEGATIVE) Departure - Departure Time of Disposition: 12:59 Disposition: Home, Self-Care 01 Condition: Good Clinical Impression: UTI, Urinary tract infectious disease, Encounter for Hernandez catheter replacement - Discharge Information Referrals: Gurmeet Caputo MD [Primary Care Provider] - Forms: ED Department Discharge Additional Instructions: The following information is given to patients seen in the emergency department who are being discharged to home. This information is to outline your options for follow-up care. We provide all patients seen in our emergency department with a follow-up referral. The need for follow-up, as well as the timing and circumstances, are variable depending upon the specifics of your emergency department visit. If you don't have a primary care physician on staff, we will provide you with a referral. We always advise you to contact your personal physician following an emergency department visit to inform them of the circumstance of the visit and for follow-up with them and/or the need for any referrals to a consulting specialist. The emergency department will also refer you to a specialist when appropriate. This referral assures that you have the opportunity for follow-up care with a specialist. All of these measure are taken in an effort to provide you with optimal care, which includes your follow-up. Under all circumstances we always encourage you to contact your private physician who remains a resource for coordinating your care. When calling for follow-up care, please make the office aware that this follow-up is from your recent emergency room visit. If for any reason you are refused follow-up, please contact the [facility] emergency department at and asked to speak to the emergency department charge nurse. - My Orders Last 24 Hours: My Active Orders 10/20/18 12:37 CULTURE URINE [RM] Stat 10/20/18 12:41 Urinary Catheter Assessment [RC] ASDIRECTED 10/20/18 12:45 Hernandez Catheter Insertion [Insert Urinary Catheter] [OM.PC] Q24H - Assessment/Plan Last 24 Hours: My Active Orders 10/20/18 12:37 CULTURE URINE [RM] Stat 10/20/18 12:41 Urinary Catheter Assessment [RC] ASDIRECTED 10/20/18 12:45 Hernandez Catheter Insertion [Insert Urinary Catheter] [OM.PC] Q24H
[2018-10-20 13:49] VITALS: BP 114/70
== END 2018-10-20 13:49 | disposition home or self-care (01) ==
LOC: MW.ED 10:19
DX: T83.031A Leakage of indwelling urethral catheter, initial encounter (principal); N39.0 Urinary tract infection, site not specified; I10 Essential (primary) hypertension; K21.9 Gastro-esophageal reflux disease without esophagitis; F31.9 Bipolar disorder, unspecified; F41.9 Anxiety disorder, unspecified; E11.9 Type 2 diabetes mellitus without complications; F17.210 Nicotine dependence, cigarettes, uncomplicated; E03.9 Hypothyroidism, unspecified; Z88.0 Allergy status to penicillin; Z88.2 Allergy status to sulfonamides; Z79.899 Other long term (current) drug therapy
CPT/HCPCS: 81001; 87086; 87088; 87186; 99283

== ENCOUNTER 2018-11-06 17:00 | Emergency (ER) | payer MEDICARE, MEDICAID ==
[2018-11-06] MEDS ORDERED: Enoxaparin 100 MG/1 ML Syringe SUBCUT ONE (18:14)
[2018-11-06] MEDS ORDERED: Enoxaparin 150 MG/1 ML Syringe SUBCUT ONE (18:20)
--- NOTE | 2018-11-06 18:42 | EDM.PDOC ---
ED HPI GENERAL MEDICAL PROBLEM - General Chief Complaint: Lower Extremity Injury/Pain Stated Complaint: POSSIBLE BLOOD CLOT Time Seen by Provider: 11/06/18 17:09 Source of Information: Reports: Patient History Limitations: Reports: No Limitations - History of Present Illness INITIAL COMMENTS - FREE TEXT/NARRATIVE: History of present illness: []Patient has a history of paraplegia and DVTs yesterday noted her left leg becoming more swollen and tender she denies any fevers, chills or new trauma. Patient denies any chest pain or shortness of breath. Patient had a DVT 1 year ago and was treated with Xarelto. He is currently not on any anticoagulants. Review of systems: As per history of present illness and below otherwise all systems reviewed and negative. Past medical history: As per history of present illness and as reviewed below otherwise noncontributory. Surgical history: As per history of present illness and as reviewed below otherwise noncontributory. Social history: No reported history of drug or alcohol abuse. Family history: As per history of present illness and as reviewed below otherwise noncontributory. Physical exam: General: Well developed, well nourished obese in NAD HEENT: Atraumatic, normocephalic, pupils reactive, negative for conjunctival pallor or scleral icterus, mucous membranes moist, throat clear, neck supple, nontender, trachea midline. Lungs: Clear to auscultation, breath sounds equal bilaterally, chest nontender. Heart: S1S2, regular, negative for clicks, rubs, or JVD. Abdomen: NABS, Soft, nondistended, nontender. Negative for masses or hepatosplenomegaly. Negative for costovertebral tenderness. Pelvis: Stable nontender. Genitourinary: Deferred. Rectal: Deferred. Extremities: Left leg is larger than the right, there is multiple areas of bluish ecchymotic areas. No erythema, negative for cords or calf pain. Neurovascular unremarkable. Neuro: Awake, alert, oriented. Cranial nerves II through XII unremarkable. Cerebellum unremarkable. Motor and sensory unremarkable throughout. Exam nonfocal. Skin:warm and dry Diagnostics: Bilateral lower extremity ultrasound with extensive DVT from pelvis to the femoral vein Therapeutics: Lovenox ED Course: Unremarkable Impression: Bilateral DVT Prescriptions: Xarelto Plan: Follow-up with primary care. Definitive disposition and diagnosis as appropriate pending reevaluation and review of above. Left Calf Pain Score (Numeric/FACES): 5 - Related Data Allergies Allergy/AdvReac Type Severity Reaction Status Date / Time adhesive tape Allergy Rash Verified 11/06/18 17:03 bupropion HCl Allergy Hives Verified 11/06/18 17:03 [From Wellbutrin] metoclopramide HCl Allergy Hives Verified 11/06/18 17:03 [From Reglan] Penicillins Allergy Hives Verified 11/06/18 17:03 Sulfa (Sulfonamide Allergy Hives Verified 11/06/18 17:03 Antibiotics) Home Meds: Home Meds Gabapentin [Gralise] 1,200 mg PO TID 12/11/17 [History] Levothyroxine Sodium [Synthroid] 137 mcg PO DAILY 12/11/17 [History] Lurasidone [Latuda] 80 mg PO DAILY 12/11/17 [History] Minocycline [Minocin] 100 mg PO BID 12/11/17 [History] Zolpidem Tartrate [Edluar] 10 mg PO BEDTIME 12/11/17 [History] HYDROmorphone [Dilaudid] 4 mg PO QID PRN #8 tablet 01/14/18 [Rx] Phenazopyridine [Pyridium] 100 mg PO TID #6 tablet 09/01/18 [Rx] fentaNYL [Duragesic] 75 mcg TD Q72H 09/17/18 [History] tiZANidine HCl [Tizanidine HCl] 8 mg PO Q6HR 09/17/18 [History] Rivaroxaban [Xarelto] 15 mg PO BID #30 tablet 11/06/18 [Rx] Past Medical History HEENT History: Reports: Allergic Rhinitis, Impaired Vision Other HEENT History: wears reading glasses. 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 Neurological History: Reports: Migraines Psychiatric History: Reports: Anxiety, Bipolar, Depression, 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) Other Psychiatric History: insomnia, bipolar Endocrine/Metabolic History: Reports: Diabetes, Type II, Hypothyroidism Hematologic History: Reports: Anemia, Iron Deficiency Immunologic History: Reports: None Oncologic (Cancer) History: Reports: None Dermatologic History: Reports: 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) Other Dermatologic History: neel infections - Infectious Disease History Infectious Disease History: Reports: Chicken Pox Other Infectious Disease History: MSSA - Past Surgical History HEENT Surgical History: Reports: None Cardiovascular Surgical History: Reports: None Respiratory Surgical History: Reports: None GI Surgical History: Reports: Bariatric Procedure, Cholecystectomy, Hernia, Abdominal, Hernia, Inguinal Female Surgical History: Reports: Hysterectomy, Salpingo-Oophorectomy Endocrine Surgical History: Reports: None Neurological Surgical History: Reports: Thoracic Spine Musculoskeletal Surgical History: Reports: Hip Replacement, 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) Other Musculoskeletal Surgeries/Procedures:: back surgery Dermatological Surgical History: Reports: None Social & Family History - Family History Family Medical History: Noncontributory HEENT: Reports: None Cardiac: Reports: None Respiratory: Reports: None GI: Reports: None : Reports: None OBGYN: Reports: None Musculoskeletal: Reports: None Neurological: Reports: None Psychiatric: Reports: Anxiety, Depression Endocrine/Metabolic: Reports: Diabetes, type II Hematologic: Reports: None Immunologic: Reports: None Oncologic: Reports: Bone, Pancreatic - Tobacco Use Smoking Status *Q: Current Every Day Smoker Years of Tobacco use: 30 Packs/Tins Daily: 1 - Caffeine Use Caffeine Use: Reports: Coffee - Recreational Drug Use Recreational Drug Use: No - Living Situation & Occupation Living situation: Reports: Occupation: Unemployed Review of Systems - Review of Systems Review Of Systems: ROS reveals no pertinent complaints other than HPI. ED EXAM, GENERAL - Physical Exam Exam: See Below (The history of present illness) Course - Vital Signs Last Recorded V/S: Last Vital Signs Temp 98.8 F 11/06/18 17:05 Pulse 116 H 11/06/18 17:05 Resp 18 11/06/18 17:05 BP 130/78 11/06/18 17:05 Pulse Ox 99 11/06/18 17:05 - Orders/Labs/Meds Orders: Active Orders 24 hr Category Date Time Status Venous Doppler Lwr Ext Bi [US] Stat Exams 11/06/18 17:17 Taken Labs: Laboratory Tests 11/06/18 11/06/18 Range/Units 17:26 17:26 WBC 5.74 (4.0-11.0) K/uL RBC 4.12 L (4.30-5.90) M/uL Hgb 12.1 (12.0-16.0) g/dL Hct 37.1 (36.0-46.0) % MCV 90.0 (80.0-98.0) fL MCH 29.4 (27.0-32.0) pg MCHC 32.6 (31.0-37.0) g/dL RDW Std Deviation 49.4 (28.0-62.0) fl RDW Coeff of Joslyn 15 (11.0-15.0) % Plt Count 178 (150-400) K/uL MPV 9.30 (7.40-12.00) fL Neut % (Auto) 69.9 (48.0-80.0) % Lymph % (Auto) 14.8 L (16.0-40.0) % Newton % (Auto) 8.5 (0.0-15.0) % Eos % (Auto) 6.6 (0.0-7.0) % Baso % (Auto) 0.2 (0.0-1.5) % Neut # (Auto) 4.0 (1.4-5.7) K/uL Lymph # (Auto) 0.9 (0.6-2.4) K/uL Newton # (Auto) 0.5 (0.0-0.8) K/uL Eos # (Auto) 0.4 (0.0-0.7) K/uL Baso # (Auto) 0.0 (0.0-0.1) K/uL Nucleated RBC % 0.0 /100WBC Nucleated RBCs # 0 K/uL INR 0.98 APTT 28.8 (18.6-31.3) SEC Meds: Medications Discontinued Medications Generic Name Dose Route Start Last Admin Trade Name Freq PRN Reason Stop Dose Admin Enoxaparin Sodium 103 mg 11/06/18 18:14 11/06/18 18:27 Lovenox SUBCUT 11/06/18 18:15 Not Given ONETIME ONE Enoxaparin Sodium 103 mg 11/06/18 18:20 11/06/18 18:24 Lovenox SUBCUT 11/06/18 18:21 103 mg ONETIME ONE Administration Departure - Departure Time of Disposition: 18:50 Disposition: Home, Self-Care 01 Condition: Good Clinical Impression: DVT, bilateral lower limbs Qualifiers: Affected thrombotic vein of extremity: femoral Chronicity: acute Qualified Code (s): I82.413 - Acute embolism and thrombosis of femoral vein, bilateral - Discharge Information *PRESCRIPTION DRUG MONITORING PROGRAM REVIEWED*: No *COPY OF PRESCRIPTION DRUG MONITORING REPORT IN PATIENT YIN: No Prescriptions: Rivaroxaban [Xarelto] 15 mg PO BID #30 tablet Referrals: PCP,Unknown [Primary Care Provider] - Forms: ED Department Discharge Additional Instructions: The following information is given to patients seen in the emergency department who are being discharged to home. This information is to outline your options for follow-up care. We provide all patients seen in our emergency department with a follow-up referral. The need for follow-up, as well as the timing and circumstances, are variable depending upon the specifics of your emergency department visit. If you don't have a primary care physician on staff, we will provide you with a referral. We always advise you to contact your personal physician following an emergency department visit to inform them of the circumstance of the visit and for follow-up with them and/or the need for any referrals to a consulting specialist. The emergency department will also refer you to a specialist when appropriate. This referral assures that you have the opportunity for follow-up care with a specialist. All of these measure are taken in an effort to provide you with optimal care, which includes your follow-up. Under all circumstances we always encourage you to contact your private physician who remains a resource for coordinating your care. When calling for follow-up care, please make the office aware that this follow-up is from your recent emergency room visit. If for any reason you are refused follow-up, please contact the [facility] Emergency Department at and asked to speak to the emergency department charge nurse. Take Xarelto as directed, follow. Follow-up with Primary care next week. [facility] [address] [place] [id number] - My Orders Last 24 Hours: My Active Orders 11/06/18 17:17 Venous Doppler Lwr Ext Bi [US] Stat - Assessment/Plan Last 24 Hours: My Active Orders 11/06/18 17:17 Venous Doppler Lwr Ext Bi [US] Stat
--- NOTE | 2018-11-06 18:51 | US ---
INDICATION: Leg pain TECHNIQUE: Ultrasound venous duplex bilateral lower extremities. Lewis-scale, color Doppler, and spectral Doppler imaging were performed with compression and augmentation. COMPARISON: None FINDINGS: Deep veins: Intraluminal thrombus is seen within the right external iliac vein, common femoral vein and femoral vein. Diffuse intraluminal thrombosis present in the left lower extremity deep veins from the inguinal region to the calf. Superficial veins: Occlusion of the left greater saphenous vein is noted. The right greater saphenous vein is patent. Soft tissue: Mild subcutaneous edema is present in the left lower extremity. No adenopathy is seen. IMPRESSIONS: 1. Intraluminal thrombus is seen within the right external iliac vein, common femoral vein and femoral vein. Diffuse intraluminal thrombosis present in the left lower extremity deep veins from the inguinal region to the calf. 2. Occlusion of the left greater saphenous vein is noted. The findings were discussed with Dr. Jacobs at 6:48 PM. Dictated by Bhavin Ellison MD @ 11/06/2018 6:46:14 PM Dictated by: Bhavin Ellison MD @ 11/06/2018 18:49:09 (Electronically Signed)
[2018-11-06 19:17] VITALS: BP 132/81
== END 2018-11-06 19:17 | disposition home or self-care (01) ==
LOC: MW.ED 17:00
DX: I82.413 Acute embolism and thrombosis of femoral vein, bilateral (principal); I10 Essential (primary) hypertension; K21.9 Gastro-esophageal reflux disease without esophagitis; J45.909 Unspecified asthma, uncomplicated; Z79.899 Other long term (current) drug therapy; Z91.09 Other allergy status, other than to drugs and biological substances; Z88.0 Allergy status to penicillin; Z88.8 Allergy status to other drugs, medicaments and biological substances
CPT/HCPCS: 36415; 85025; 85610; 85730; 93970; 99284; J1650; 99283

== ENCOUNTER 2020-08-04 10:33 | Emergency (ER) | payer MEDICARE, MEDICAID ==
--- NOTE | 2020-08-04 12:31 | EDM.PDOC ---
ED HPI GENERAL MEDICAL PROBLEM - General Chief Complaint: Back Pain or Injury Stated Complaint: OPEN WOUND ON BACK Time Seen by Provider: 08/04/20 10:34 Source of Information: Reports: Patient, Other History Limitations: Reports: No Limitations - History of Present Illness INITIAL COMMENTS - FREE TEXT/NARRATIVE: History of present illness: [Patient is 45-year-old female who was [facility] in from [facility] for concern of an infection of her lower back. Patient tells me that for the last 4 months she has had waxing and waning drainage and infection in her lower back over the region of the tailbone. She recently finished a 7-day course of IM Rocephin. She had the wound swabbed at the clinic prior to being transferred here for further work-up and possible surgical evaluation. She denies fever or chills. Denies any chest pain or shortness of breath. The amount of drainage from the site is been fairly mild since finishing her course of Rocephin.] Review of systems: As per history of present illness and below otherwise all systems reviewed and negative. Past medical history: As per history of present illness and as reviewed below otherwise noncontributory. Surgical history: As per history of present illness and as reviewed below otherwise noncontributory. Social history: No reported history of drug or alcohol abuse. Family history: As per history of present illness and as reviewed below otherwise noncontributory. Physical exam: General: Awake, alert, no acute distress, A&O X3. HEENT: Atraumatic, normocephalic, pupils reactive, negative for conjunctival pallor or scleral icterus, mucous membranes moist, throat clear, neck supple, nontender, trachea midline. Lungs: Clear to auscultation, breath sounds equal bilaterally, chest nontender. Heart: RRR, normal S1S2, no JVD. Abdomen: Soft, nondistended, nontender. Negative for masses or hepatosplenomegaly. Negative for costovertebral tenderness. Pelvis: Stable nontender. Genitourinary: Deferred. Rectal: Deferred. Extremities: Atraumatic, no edema, Neurovascular unremarkable. Neuro: Motor and sensory grossly intact throughout. Exam nonfocal. Skin: Appears to be a small open lesion just superior to the gluteal cleft, no active purulent drainage, no overlying erythema or surrounding induration. The location and symptoms appear to be consistent with a draining pilonidal cyst Diagnostics: [] Therapeutics: [] Impression: [] Plan: [] Definitive disposition and diagnosis as appropriate pending reevaluation and review of above. - Related Data Allergies Allergy/AdvReac Type Severity Reaction Status Date / Time adhesive tape Allergy Rash Verified 08/04/20 11:35 bupropion HCl Allergy Hives Verified 08/04/20 11:35 [From Wellbutrin] metoclopramide HCl Allergy Hives Verified 08/04/20 11:35 [From Reglan] Penicillins Allergy Hives Verified 08/04/20 11:35 Sulfa (Sulfonamide Allergy Hives Verified 08/04/20 11:35 Antibiotics) Home Meds: Home Meds Gabapentin [Gralise] 1,200 mg PO TID 12/11/17 [History] Levothyroxine Sodium [Synthroid] 137 mcg PO DAILY 12/11/17 [History] Lurasidone [Latuda] 80 mg PO DAILY 12/11/17 [History] Minocycline [Minocin] 100 mg PO BID 12/11/17 [History] Zolpidem Tartrate [Edluar] 10 mg PO BEDTIME 12/11/17 [History] HYDROmorphone [Dilaudid] 4 mg PO QID PRN #8 tablet 01/14/18 [Rx] Phenazopyridine [Pyridium] 100 mg PO TID #6 tablet 09/01/18 [Rx] fentaNYL [Duragesic] 75 mcg TD Q72H 09/17/18 [History] tiZANidine HCl [Tizanidine HCl] 8 mg PO Q6HR 09/17/18 [History] Rivaroxaban [Xarelto] 15 mg PO BID #30 tablet 11/06/18 [Rx] Past Medical History HEENT History: Reports: Allergic Rhinitis, Impaired Vision Other HEENT History: wears reading glasses. 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 Neurological History: Reports: Migraines Psychiatric History: Reports: Anxiety, Bipolar, Depression, 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) Other Psychiatric History: insomnia, bipolar Endocrine/Metabolic History: Reports: Diabetes, Type II, Hypothyroidism Hematologic History: Reports: Anemia, Iron Deficiency Immunologic History: Reports: None Oncologic (Cancer) History: Reports: None Dermatologic History: Reports: 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) Other Dermatologic History: neel infections - Infectious Disease History Infectious Disease History: Reports: None Other Infectious Disease History: MSSA - Past Surgical History HEENT Surgical History: Reports: None Cardiovascular Surgical History: Reports: None Respiratory Surgical History: Reports: None GI Surgical History: Reports: Bariatric Procedure, Cholecystectomy, Hernia, Abdominal, Hernia, Inguinal Female Surgical History: Reports: Hysterectomy, Salpingo-Oophorectomy Endocrine Surgical History: Reports: None Neurological Surgical History: Reports: Thoracic Spine Musculoskeletal Surgical History: Reports: Hip Replacement, 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) Other Musculoskeletal Surgeries/Procedures:: back surgery Dermatological Surgical History: Reports: None Social & Family History - Family History Family Medical History: Noncontributory HEENT: Reports: None Cardiac: Reports: None Respiratory: Reports: None GI: Reports: None : Reports: None OBGYN: Reports: None Musculoskeletal: Reports: None Neurological: Reports: None Psychiatric: Reports: Anxiety, Depression Endocrine/Metabolic: Reports: Diabetes, type II Hematologic: Reports: None Immunologic: Reports: None Oncologic: Reports: Bone, Pancreatic - Tobacco Use Tobacco Use Status *Q: Current Every Day Tobacco User Years of Tobacco use: 30 Packs/Tins Daily: 1 - Caffeine Use Caffeine Use: Reports: Coffee - Recreational Drug Use Recreational Drug Use: No - Living Situation & Occupation Living situation: Reports: Occupation: Unemployed ED ROS GENERAL - Review of Systems Review Of Systems: Comprehensive ROS is negative, except as noted in HPI. ED EXAM,LOWER BACK PAIN/INJURY - Physical Exam Exam: See Below (see h and p) Course - Vital Signs Text/Narrative:: Dr. Fisher came into the ER to evaluate the patient as well. Given her body habitus, and the recurrent drainage from the site, he believes she would be better served going to [place] to have this taken care of in the future. He does not believe there is any indication for emergent admission or transfer there. The site does not appear to be acutely infected. It appears to be consistent with a pilonidal cyst. His recommendation was that she go to [place] because they have wound care available there in case she needs a wound VAC or involvement with plastic surgery for proper healing given her previous back surgeries and body habitus. He does not feel she would have adequate resources locally here after evacuating the cyst. Last Recorded V/S: Last Vital Signs Temp 36.9 C 08/04/20 11:35 Pulse 104 H 08/04/20 11:35 Resp 20 08/04/20 11:35 BP 108/69 08/04/20 11:35 Pulse Ox 95 08/04/20 11:35 Departure - Departure Time of Disposition: 12:42 Disposition: Home, Self-Care 01 Condition: Good Clinical Impression: Pilonidal cyst - Discharge Information Instructions: Pilonidal Cyst, Wound Care, Adult Referrals: Diamond Dewitt NP [Primary Care Provider] - Alberto Carrillo MD [Ordering Only Provider] - Forms: ED Department Discharge Additional Instructions: Follow-up with primary care doctor and the resources we have provided you to follow-up in [place]. Take all medications as previously prescribed. Return to the ER with any new or worsening symptoms. Dr. Alberto Carrillo: [address] [place] [id number] The following information is given to patients seen in the emergency department who are being discharged to home. This information is to outline your options for follow-up care. We provide all patients seen in our emergency department with a follow-up referral. The need for follow-up, as well as the timing and circumstances, are variable depending upon the specifics of your emergency department visit. If you don't have a primary care physician on staff, we will provide you with a referral. We always advise you to contact your personal physician following an emergency department visit to inform them of the circumstance of the visit and for follow-up with them and/or the need for any referrals to a consulting specialist. The emergency department will also refer you to a specialist when appropriate. This referral assures that you have the opportunity for follow-up care with a specialist. All of these measure are taken in an effort to provide you with optimal care, which includes your follow-up. Under all circumstances we always encourage you to contact your private physician who remains a resource for coordinating your care. When calling for follow-up care, please make the office aware that this follow-up is from your recent emergency room visit. If for any reason you are refused follow-up, please contact the [facility] Emergency Department at and asked to speak to the emergency department charge nurse. Sepsis Event Note (ED) - Evaluation Sepsis Screening Result: No Definite Risk - Focused Exam Vital Signs: Vital Signs Temp Pulse Resp BP Pulse Ox 08/04/20 11:35 36.9 C 104 H 20 108/69 95
[2020-08-04 16:12] VITALS: BP 106/67; PULSE 94
== END 2020-08-04 13:16 | disposition home or self-care (01) ==
LOC: MW.ED 10:33
DX: L05.91 Pilonidal cyst without abscess (principal); F17.210 Nicotine dependence, cigarettes, uncomplicated; I10 Essential (primary) hypertension; F31.9 Bipolar disorder, unspecified; F41.9 Anxiety disorder, unspecified; E11.9 Type 2 diabetes mellitus without complications; E03.9 Hypothyroidism, unspecified; J45.909 Unspecified asthma, uncomplicated; Z91.048 Other nonmedicinal substance allergy status; Z88.8 Allergy status to other drugs, medicaments and biological substances; Z88.0 Allergy status to penicillin; Z88.2 Allergy status to sulfonamides; Z79.01 Long term (current) use of anticoagulants; Z79.899 Other long term (current) drug therapy; T14.8XXA Other injury of unspecified body region, initial encounter
CPT/HCPCS: 87070; 87077; 87186; 99282; 99283